=== PATIENT | female | born 1965 | race Caucasian/White ===

== ENCOUNTER 2023-12-06 18:44 | Emergency (ER) | payer SELFPAY ==
[2023-12-06 18:45] VITALS: BP 159/93; PULSE 110; RESP 20; TEMP 36.6; O2SAT 99; BMI 37.8
--- NOTE | 2023-12-06 19:07 | ECG_ITS ---
APPROVED REPORT Exam: Resting ECG HR:98 bpm ECG Measurements Heart Rate 98 AXES DE 130 P 41 QRSd 90 QRS -29 QT 359 T 6 QTc 414 Conclusion SINUS RHYTHM POSSIBLE ANTERIOR MYOCARDIAL INFARCTION , PROBABLY OLD [30 ms Q WAVE IN V3/V4, OR R < 0.2 mV IN V4] Electronically signed by : GRISELDA ATKINSON, 12/07/2023 00:53:20
--- NOTE | 2023-12-06 19:07 | CT_ITS ---
PROCEDURE INFORMATION: Exam: CT Abdomen And Pelvis With Contrast Exam date and time: 12/06/2023 10:00 PM Age: 58 years old Clinical indication: Abdominal pain; Epigastric; Additional info: Ruq/epigastric pain, h/o simba en y, h/o bernardo TECHNIQUE: Imaging protocol: Computed tomography of abdomen and pelvis with contrast. Total images: 354 Radiation optimization: All CT scans at this facility use at least one of these dose optimization techniques: automated exposure control; mA and/or kV adjustment per patient size (includes targeted exams where dose is matched to clinical indication); or iterative reconstruction. Contrast material: ISOVUE; Contrast volume: 75 ml; Contrast route: IV; COMPARISON: No relevant prior studies available. FINDINGS: Lungs: minor bibasilar atelectasis. Pleural spaces: Trace right pleural fluid. Heart: Normal heart size. Liver: Liver is upper normal in size at 18 cm. Decreased hepatic attenuation from phase of contrast versus steatosis. Normal contour. No mass. Gallbladder and bile ducts: Status post cholecystectomy. No bile duct dilatation. Pancreas: Normal. No ductal dilation. Spleen: Normal. No splenomegaly. Adrenal glands: Normal. No mass. Kidneys and ureters: No hydronephrosis, nephrolithiasis, or discrete renal mass. Right perinephric fluid and edema. Stomach and bowel: Status post gastric bypass. Residual stomach is collapsed. Unremarkable duodenum. No ileus or bowel obstruction. Focal dilatation at the jejunal anastomosis most compatible with denervation. Unremarkable terminal ileum. Mild stool in the proximal colon. The left hemicolon and rectum are completely collapsed. Appendix: Normal appendix. Intraperitoneal space: Mild free fluid throughout the right upper and right lower quadrants, encompassing the liver, gallbladder fossa, right kidney, and right paracolic gutter to the pelvis. Additional small quantity pelvic fluid. No free intraperitoneal air. Vasculature: Abdominal aorta is normal in caliber. Major abdominal vessels enhance appropriately. Lymph nodes: Unremarkable. No enlarged lymph nodes. Urinary bladder: Collapsed bladder. Reproductive: Status post hysterectomy. No pelvic mass. Bones/joints: Mild osteopenia. Mild degenerative changes thoracolumbar spine. Nonspecific lucent bone lesions L2 and L3 vertebral bodies may reflect hemangiomas. Mild thoracolumbar scoliosis. Soft tissues: Large bilobed upper abdominal wall hernia containing nonobstructed loops of small bowel and a portion of the transverse colon. IMPRESSION: 1. Mild free fluid within the right upper and right lower quadrant, surrounding the liver, right kidney, gallbladder fossa, and paracolic gutter. 2. Unknown etiology for the free fluid. If cholecystectomy was recent, consider a bile leak. 3. Status post gastric bypass. 4. Large midline abdominal wall hernia containing nonobstructed loops of small bowel and colon. 5. Additional chronic and incidental findings.
[2023-12-06] MEDS: LACTATED RINGERS 1000ML 1,000 ML 999 ML IV ×2 (19:27→20:40)
[2023-12-06] MEDS: ONDANSETRON 4MG/2ML VIAL 4 MG IV (19:28)
[2023-12-06] MEDS: MORPHINE 4MG/ML SYRINGE 4 MG IV (19:28)
[2023-12-06 19:34] LABS: Basophils # 0.1 K/mm3 (0-0.2); Basophils % 0.5 % (0.1-2.0); Eosinophils % 0.1 % (0.1-12.0); Hematocrit 33.1 % (37.0-47.0); Lymphocytes # 0.8 K/mm3 (0.7-4.5); Lymphocytes % 5.7 % (10-50); Mean Corpuscular HGB Conc 30.2 g/dL (31.8-35.4); Mean Corpuscular Hemoglobin 20.5 pg (27.0-31.2); Mean Corpuscular Volume 67.9 fl (81-99); Mean Platelet Volume 7.8 fl (7.4-10.4); Monocytes # 0.3 K/mm3 (0.1-1.0); Monocytes % 2.3 % (1.7-9.3); Neutrophils # 12.2 K/mm3 (1.8-7.8); Neutrophils % 91.5 % (37.0-80.0); Platelet Count 410 K/mm3 (142-424); Red Blood Count 4.87 M/mm3 (4.20-5.40); Red Cell Distribution Width 19.4 % (11.5-17.5); White Blood Count 13.3 K/mm3 (4.8-10.8)
[2023-12-06] MEDS: DIATRIZOATE MEG 66% & DIATRIZOATE NA 10% 30ML UDC 30 ML PO (19:35)
[2023-12-06 19:36] LABS: VBG Base Excess -6.1 mmol/L (-2.4-2.3); VBG HCO3 18.8 mmol/L (23-30); VBG Oxygen Saturation 74.2 % (50-70); VBG PCO2 31.3 mmol/L (35-51); VBG PO2 41.2 mmol/L (28-40); VBG Total CO2 19.7 mmol/L (23-27)
[2023-12-06 19:37] LABS: Lactate Venous 3.2 mmol/L (0.4-2.0)
[2023-12-06 19:39] LABS: MANUAL DIFFERENTIAL MANUAL DIFFERENTIAL (MANUAL DIFF)
[2023-12-06 19:44] LABS: Alanine Aminotransferase 34 U/L (12-78); Albumin Level 4.4 g/dl (3.5-5.0); Albumin/Globulin Ratio 1.5 (1.1-1.8); Alkaline Phosphatase 231 U/L (38-126); Aspartate Amino Transferase 35 U/L (14-36); Bilirubin,Total 0.8 mg/dl (0.2-1.3); Blood Urea Nitrogen 12 mg/dl (7-17); Calcium 9.1 mg/dl (8.4-10.2); Carbon Dioxide 22 mmol/L (22.0-30.0); Chloride 98 mmol/L (98-107); Creatinine Clearance Estimated 186 mL/min (50-200); Estimated Glomerular Filt Rate 128 ml/min (>60); GFR (African American) 154 ML/MIN (>60); Globulin 2.9 g/dL (1.3-3.2); Glucose 178 mg/dl (74-100); Lipase 359 U/L (23-300); Sodium 133 mmol/L (136-145); Total Protein,Serum 7.3 g/dl (6.3-8.2)
[2023-12-06 19:46] LABS: Activated Partial Thrombo Time 26.2 seconds (22.8-30.6); INR 1.01 (0.9-1.1); Prothrombin Time 10.9 seconds (10.1-12.5)
[2023-12-06 19:48] LABS: Ethyl Alcohol < 10 mg/dl (0-10)
--- NOTE | 2023-12-06 19:48 | PC.NURSE ---
notified freddy with rad of finished gastrograffin time.
--- NOTE | 2023-12-06 19:54 | PC.NURSE ---
clarified order for contrast with dr singh. updated nelson hayes
[2023-12-06 20:01] LABS: Troponin I < 0.01 ng/ml (0.00-0.034)
[2023-12-06 20:12] LABS: Anion Gap 16.9 mEq/L (5-15); Potassium 3.9 mmoL/L (3.5-5.1)
[2023-12-06 20:13] LABS: Lymphocytes % 6 % (10-50); Neutrophils % 94 % (42-76); Platelet Estimate Normal; Total Cells Counted 100
[2023-12-06 20:16] LABS: Microcytosis 2+
[2023-12-06 20:17] LABS: Anisocytosis 1+; Burr Cells 2+; Hypochromasia 1+
[2023-12-06 20:30] VITALS: BP 153/79; PULSE 88; O2SAT 99
[2023-12-06] MEDS: ACETAMINOPHEN 1,000MG/100ML VIAL 1000 MG IV (20:39)
[2023-12-06] MEDS: HYDROMORPHONE 2MG/ML SYRINGE 0.5 MG IV (20:44)
[2023-12-06] MEDS: KETOROLAC 30MG/ML VIAL 15 MG IV (20:45)
--- NOTE | 2023-12-06 20:47 | ED_ITS ---
Discharge Plan Disposition Patient Disposition: Home, Self-Care Condition: Good Prescriptions Prescriptions: New ciprofloxacin HCl 500 mg tablet 500 mg PO BID Qty: 20 0RF ondansetron HCl 4 mg tablet 4 mg PO Q8H PRN (Reason: nausea and vomiting) 4 Days Qty: 12 0RF metronidazole 500 mg tablet 500 mg PO BID 10 Days Qty: 20 0RF oxycodone 5 mg tablet 5 mg PO Q8H PRN (Reason: pain) Qty: 12 0RF Referrals Follow up/Referrals: Fernando Alvarez DO [Staff Physician] - See instructions Provider,MD Jarred [Primary Care Provider] - See instructions Sukhwinder Salazar MD [Staff Physician] - See instructions Sukhwinder Andrade MD [Staff Physician] - See instructions Activity Restrictions/Add. Instructions Additional Instructions/Restrictions: You were evaluated in the emergency department today. At this time, your labs are concerning for potential pancreatitis. You have fluid buildup around your liver and pancreas on CT scan. You need very close follow-up with your primary care provider as well as potentially gastroenterology. I provided you with a list of some primary care providers in the area. Please call their office to schedule an appointment and notify them that you were seen in the emergency department for an acute issue. This can be related to cirrhosis and/or pancreatitis. Alcohol use can cause pancreatitis. Eat very small, low-fat meals and gradually advance as tolerated. Make sure that you are staying hydrated. Since you have fluid in your CT scan we are prescribing you antibiotics to help clear this up. Return to the emergency department for new or worsening symptoms, such as fever, intractable pain, intractable nausea vomiting, or other concerns. Clinical Impressions Clinical Impression: Acute pancreatitis, Alcohol use, Abdominal pain, Intra-abdominal fluid Stand Alone Forms Stand Alone Forms: Work/School Release Instructions Patient Instructions: DI for Pancreatitis, DI for Acute Pain -- Adult Discharge ED Provider: Gary Srivastava General Adult HPI General Chief complaint: PAIN Stated complaint: right side pain Time Seen by Provider: 12/06/23 18:52 Mode of Arrival: Ambulatory Source of Information: Patient Limitations: No Limitations Description of Symptoms (Recalled from ER Triage Doc. by RN): Patient c/o of pain in her right side that radiates to her right shoulder. Patient states pain started this morning and has gotten worse throughout the day. Patient rates pain 10/10. Denies N/V/D. 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 She states it is mostly in her right upper quadrant and radiates to her right shoulder as well as her right pelvis. She denies experiencing anything like this in the past. It started yesterday but became significantly worse today. The pain is 10 out of 10 and she is visibly uncomfortable. No fevers, nausea, vomiting, or changes in bowel movements. She notes that she drinks approximately 3 rum and Cokes daily. She denies ever experiencing alcohol withdrawals in the past Related Data Previous Rx's Medication Instructions Recorded ciprofloxacin HCl 500 mg tablet 500 mg PO BID #20 tabs 12/06/23 metronidazole 500 mg tablet 500 mg PO BID 10 days #20 tabs 12/06/23 ondansetron HCl 4 mg tablet 4 mg PO Q8H PRN nausea and 12/06/23 vomiting 4 days #12 tabs oxycodone 5 mg tablet 5 mg PO Q8H PRN pain #12 tabs 12/06/23 Allergies Allergy/AdvReac Type Severity Reaction Status Date / Time Unable to Assess Allergy Verified 12/06/23 19:18 [facility] Disclaimer: The information contained in this section may have been updated after the patient was seen, as this information can be updated by other users. Social History (Updated 12/07/23 @ 00:33 by Ashley Silva DO) Smoking Status: Never smoker alcohol intake: current current occupational status: employed Travel in the last 8 weeks: None ROS Obtained: Yes All systems reviewed & no additional complaints except as documented Physical Exam General General appearance: alert and obese Comment: Uncomfortable appearing Head Head exam: atraumatic and normocephalic Eye Eye exam: Present normal appearance, PERRL and EOMI ENT ENT exam: Present normal exam, normal oropharynx, mucous membranes moist and normal external ear exam Neck Neck exam: Present normal inspection, full ROM and trachea midline; Absent tenderness Chest Chest inspection: Present normal inspection and symmetric chest wall rise; Absent tenderness Respiratory Respiratory exam: Present normal lung sounds bilaterally; Absent respiratory distress, wheezes, stridor or accessory muscle use Cardiovascular Cardiovascular exam: Present regular rate and normal rhythm Abdominal Exam Abdominal exam: Present soft and tenderness (Epigastric/right upper quadrant); Absent distention, guarding, rebound or rigidity Extremities Exam Extremities exam: Present normal inspection, full ROM and normal capillary refill; Absent tenderness or edema Back Exam Back exam: Present normal inspection and full ROM; Absent tenderness Neurological Exam Neurological exam: Present alert, oriented X3, CN II-XII intact and normal gait; Absent motor sensory deficit Psychiatric Psychiatric exam: Present normal affect and normal mood Skin Skin exam: Present warm and dry Medical Decision Making Medical Records Medical records reviewed: Yes I reviewed the patient's medical records. Greg Inquiry Pt receiving controlled substance: Yes Greg was queried for this patient: Yes Risks and benefits of using a controlled substance: were discussed with pt by me Vital Signs: 12/06/23 18:45 12/06/23 20:30 12/06/23 21:00 Temperature 97.8 F Temperature Source Oral Pulse Rate 88 80 Pulse Rate [Right Radial] 110 H Respiratory Rate 20 Blood Pressure 153/79 H 143/66 H Blood Pressure [Right Arm] 159/93 H Blood Pressure Mean 103 95 Blood Pressure Mean [Right Arm] 115 Blood Pressure Source [Right Arm] Automatic Cuff Blood Pressure Position [Right Arm] Sitting 02 Sat by Pulse Oximetry 99 99 98 Oxygen Delivery Method Room Air Room Air Room Air 12/06/23 22:48 Temperature Temperature Source Pulse Rate 89 Pulse Rate [Right Radial] Respiratory Rate 24 Blood Pressure 137/78 Blood Pressure [Right Arm] Blood Pressure Mean 88 Blood Pressure Mean [Right Arm] Blood Pressure Source [Right Arm] Blood Pressure Position [Right Arm] 02 Sat by Pulse Oximetry 98 Oxygen Delivery Method Room Air Lab Data Lab results reviewed: Yes I reviewed the patient's lab results. Lab Results 12/06/23 19:08: VBG pH 7.40, VBG pCO2 31.3 L, VBG pO2 41.2 H, VBG HCO3 18.8 L, V BG Total CO2 19.7 L, VBG O2 Saturation 74.2 H, VBG Base Excess -6.1 L, VBG Lactic Acid 3.2 H 12/06/23 19:24: WBC 13.3 H, RBC 4.87, Hgb 10.0 L, Hct 33.1 L, MCV 67.9 L, MCH 20.5 L, MCHC 30.2 L, RDW 19.4 H, Plt Count 410, MPV 7.8, Neut % (Auto) 91.5 H, L ymph % (Auto) 5.7 L, Union % (Auto) 2.3, Eos % (Auto) 0.1, Baso % (Auto) 0.5, N eut # (Auto) 12.2 H, Lymph # (Auto) 0.8, Union # (Auto) 0.3, Eos # (Auto) 0.0, Baso # (Auto) 0.1, Total Counted 100, Neutrophils % (Manual) 94 H, Lymphocytes % (Manual) 6 L, Platelet Estimate Normal, Hypochromasia 1+, Anisocytosis 1+, Microcytosis 2+, Maricarmen Cells 2+, PT 10.9, INR 1.01, APTT 26.2, Sodium 133 L, Potassium 3.9, Chloride 98, Carbon Dioxide 22, Anion Gap 16.9 H, BUN 12, C reatinine 0.50 L, Estimated Creat Clear 186, Estimated GFR 128, Est GFR ( Amer) 154, Glucose 178 H, Calcium 9.1, Total Bilirubin 0.8, AST 35, ALT 34, A lkaline Phosphatase 231 H, Troponin I < 0.01, Total Protein 7.3, Albumin 4.4, Globulin 2.9, Albumin/Globulin Ratio 1.5, Lipase 359 H, Plasma/Serum Alcohol < 10 12/06/23 21:25: Urine Color Yellow, Urine Appearance Clear, Urine pH 6.0, Ur Specific [place] 1.010, Urine Protein Negative, Urine Glucose (UA) Negative, Urine Ketones Negative, Urine Blood Negative, Urine Nitrate Positive, Urine Bilirubin Negative, Urine Urobilinogen 0.2, Ur Leukocyte Esterase Negative, Urine RBC None, Urine WBC Occasional, Ur Squamous Epith Cells Occasional, Urine Bacteria 2+, Urine Opiates Screen Positive H, Urine Methadone Screen Negative, Ur Barbituates Screen Negative, Ur Phencyclidine Scrn Negative, Ur Amphetamines Screen Negative, U Benzodiazepines Scrn Negative, Urine Cocaine Screen Negative, U Marijuana (THC) Screen Negative 12/06/23 22:25: Troponin I < 0.01, Vitamin B12 979 H, Folate 5.18 12/06/23 23:00: Lactate 2.5 H 12/06/23 19:24 12/06/23 19:24 Orders (Tests/Meds): ED MEDICATIONS Generic Name Dose Route Start Last Admin Trade Name Margie PRN Reason Stop Dose Admin Diazepam 10 mg 12/06/23 22:11 Diazepam 10mg/2ml Syringe IV 01/05/24 22:10 Q1HP PRN CIWA >16 Diazepam 5 mg 12/06/23 22:11 Diazepam 5mg Tablet PO 01/05/24 22:10 Q1HP PRN CIWA Score 8-15 Diazepam 5 mg 12/06/23 22:11 Diazepam 5mg Tablet PO 01/05/24 22:10 Q6HP PRN CIWA 2-7 Folic Acid 1 mg 12/07/23 09:00 Folic Acid 1mg Tablet PO 01/06/24 08:59 DAILY ANDREW Multivitamins 10 ml/ Thiamine 1,015 mls @ 150 mls/hr 12/06/23 22:15 12/06/23 23:06 HCl 100 mg/ Magnesium Sulfate IV 12/07/23 05:00 150 mls/hr 2 gm/ Lactated Ringer's .Q6H46M ANDREW Administration Multivitamins 1 each 12/07/23 17:00 Multivitamin Tablet PO 01/06/24 16:59 1700 ANDREW Sodium Chloride 10 ml 12/06/23 22:07 12/06/23 22:07 Sodium Chloride 0.9% 10ml Syr (Rad Only) IV 01/05/24 22:06 10 ml NEEDED PRN Administration Maintain IV Site Thiamine HCl 100 mg 12/07/23 09:00 Thiamine 100mg Tablet PO 12/09/23 09:01 DAILY ANDREW Discontinued Medications Generic Name Dose Route Start Last Admin Trade Name Margie PRN Reason Stop Dose Admin Acetaminophen 1,000 mg 12/06/23 20:27 12/06/23 20:39 Acetaminophen 1,000mg/100ml Vial IV 12/06/23 20:28 1,000 mg ONCE ONE Administration Diatrizoate Meglum/Diatrizoate Sod 30 ml 12/06/23 19:07 12/06/23 19:35 Diatrizoate Eri 66% & Diatrizoate Na 10% 30ml Udc PO 12/06/23 19:08 30 ml ONCE ONE Administration Folic Acid 1 mg 12/06/23 22:11 12/06/23 23:07 Folic Acid 1mg Tablet PO 12/06/23 22:12 1 mg ONCE ONE Administration Hydromorphone HCl 0.5 mg 12/06/23 20:27 12/06/23 20:44 Hydromorphone 2mg/Ml Syringe IV 12/06/23 20:28 0.5 mg ONCE ONE Administration Hydromorphone HCl 0.5 mg 12/06/23 23:01 Hydromorphone 2mg/Ml Syringe IV 12/06/23 23:02 ONCE ONE Lactated Ringer's 1,000 mls @ 999 mls/hr 12/06/23 19:07 12/06/23 19:27 Lactated Ringer's 1000 Ml Bag IV 12/06/23 20:07 999 mls/hr .Q1H1M ONE Administration Lactated Ringer's 1,000 mls @ 999 mls/hr 12/06/23 19:58 12/06/23 20:40 Lactated Ringer's 1000 Ml Bag IV 12/06/23 20:58 999 mls/hr .Q1H1M ONE Administration Iopamidol 75 ml 12/06/23 22:07 12/06/23 22:07 Iopamidol-370 (76%);100ml Bottle IV 12/06/23 22:08 75 ml ONCE ONE Administration Ketorolac Tromethamine 15 mg 12/06/23 20:27 12/06/23 20:45 Ketorolac 30mg/Ml Vial IV 12/06/23 20:28 15 mg ONCE ONE Administration Morphine Sulfate 4 mg 12/06/23 19:07 12/06/23 19:28 Morphine 4mg/Ml Syringe IV 12/06/23 19:08 4 mg ONCE ONE Administration Ondansetron HCl 4 mg 12/06/23 19:07 12/06/23 19:28 Ondansetron 4mg/2ml Vial IV 12/06/23 19:08 4 mg ONCE ONE Administration Ondansetron HCl 4 mg 12/06/23 23:10 Ondansetron 4mg Odt SL 12/06/23 23:11 ONCE ONE Oxycodone HCl 5 mg 12/06/23 23:10 12/07/23 00:14 Oxycodone 5mg Immediate Release Tablet PO 12/06/23 23:11 5 mg ONCE ONE Administration ORDERS Category Date Time Status CT abdomen pelvis w con Stat Cat Scan 12/06/23 19:07 Completed Activated Partial Thrombo Time Stat Lab 12/06/23 19:24 Completed Complete Blood Count Auto Diff Stat Lab 12/06/23 19:24 Completed Comprehensive Metabolic Panel Stat Lab 12/06/23 19:24 Completed Drug Screen,Urine Routine Lab 12/06/23 21:25 Completed Ethyl Alcohol Stat Lab 12/06/23 19:24 Completed Folate Stat Lab 12/06/23 22:25 Completed Lactic Acid Follow Up (RFLX 1) Stat Lab 12/06/23 23:00 Completed Lipase Stat Lab 12/06/23 19:24 Completed Prothrombin Time INR Stat Lab 12/06/23 19:24 Completed Troponin I Q3H Lab 12/06/23 22:25 Completed Troponin I Q3H Lab 12/07/23 01:15 Ordered Troponin I Stat Lab 12/06/23 19:24 Completed Urinalysis and Microscopic Stat Lab 12/06/23 21:25 Completed Vitamin B1 Routine Lab 12/06/23 22:25 Received Vitamin B12 Stat Lab 12/06/23 22:25 Completed Urine Culture Stat Micro 12/06/23 21:25 Received VBG [Venous Blood Gas] Stat RT 12/06/23 19:08 Completed ECG Data Tracing #1: I reviewed this ECG and interpreted as documented below: Normal sinus rhythm with a ventricular rate of [address] changes concerning for ischemia. ECG initial impression date: 12/06/23 ECG initial impression time: 19:54 Medical Decision Narrative: In summary, this patient is a 58-year-old female presenting to the Emergency Department for evaluation of right upper quadrant abdominal pain radiating to her right shoulder and right pelvis. Patient is status post cholecystectomy, Franck-en-Y, and multiple other prior abdominal surgeries. Differential diagnoses considered include but are not limited to pancreatitis, colitis, gastroenteritis, constipation, bowel obstruction, ureterolithiasis, pyelonephritis. Ruling out the most morbid conditions drove assessment. It should be noted patient's history includes obesity and daily alcohol abuse which is not at goal therapy. This complicates all aspects of care by increasing patient's risk for morbidity. On exam, the patient is uncomfortable appearing and appears to be in a lot of pain. She is hypertensive and tachycardic. She has tenderness to palpation in the right upper quadrant region. Workup included CBC, CMP, lipase, lactic acid, urinalysis, troponin, EKG, and CT abdomen and pelvis with IV contrast and oral contrast given her history of Franck-en-Y.. Labs were obtained that demonstrated leukocytosis, mildly elevated lactic acid, mild hyponatremia, mildly elevated anion gap, mild anemia with a hemoglobin of 10, mildly elevated lipase at 359, and mildly elevated alkaline phosphatase. These findings could be chronic related to her daily alcohol abuse. 2 L bolus of IV fluids were administered. She is not scoring on CIWA. Thiamine and folate were administered after banana bag. Patient was given IV morphine and Zofran initially for symptomatic improvement of pain, but still had considerable pain. Given this, she was given IV Dilaudid. EKG obtained was reassuring. Initial troponin negative. I independently interpreted CT scan prior to the radiologist read and noted fluid in the right upper quadrant. Please see radiology interpretation for final read. They noted that this could be biliary leak if her cholecystectomy were recent, but it was back in the 90s and she had had no significant issues since then. I feel that could be peripancreatic edema and fluid or related to potential cirrhosis given her daily alcohol use. I offered the patient admission versus transfer to a facility with gastroenterology for further evaluation and management of this. She states she would prefer trying to go home with pain medication to treat her presumed pancreatitis. Given the fluid on CT scan, I did prescribe her ciprofloxacin and Flagyl. She does not have a primary care provider, which makes her high risk. I gave her instructions for follow-up with PCPs as well as a list. I gave her very strict return precautions and advised that if she feels worse at all or changes his mind, we would be happy to see her here. She expressed understanding and agreement. Patient's pain was controlled with oral oxycodone and Zofran. Given this, she was deemed to be appropriate for patient directed discharge home as opposed to admission for treatment of her acute abdominal fluid and presumed pancreatitis. She does have nitrates and bacteria in her urine, but she denies any urinary symptoms or use of Azo. Urine culture was sent. Patient was discharged with instructions for very close follow-up, strict return precautions, and prescriptions for oxycodone, Zofran, ciprofloxacin, and Flagyl. Critical Care Critical Care Time Critical Care Time: No
[2023-12-06 21:00] VITALS: BP 143/66; PULSE 80; O2SAT 98
[2023-12-06 21:31] LABS: Microscopic, Urine URINE MICROSCOPIC (MICROSCOPIC)
[2023-12-06 21:37] LABS: Appearance,Urine CLEAR (Clear); Bilirubin,Urine Negative (Negative); Blood, Urine Negative (Negative); Color,Urine YELLOW (Yellow); Glucose,Urine (UA) Negative (Negative); Ketones,Urine Negative (Negative); Leukocyte Esterase,Urine Negative (Negative); Nitrate,Urine POSITIVE (Negative); Protein,Urine Negative (Negative); Urobilinogen,Urine 0.2 EU/dl (0.2)
[2023-12-06] MEDS: SODIUM CHLORIDE 0.9% 10ML SYR (RAD ONLY) 10 ML IV (22:07)
[2023-12-06] MEDS: IOPAMIDOL-370 (76%);100ML BOTTLE 75 ML IV (22:07)
[2023-12-06 22:12] LABS: Bacteria,Urine 2+ /lpf; Squamous Epithelial Cell,Urine Occasional #/hpf (0-5); WBC,Urine Occasional #/hpf (0-3)
[2023-12-06 22:37] LABS: Amphetamine/Metha Screen,Urine Negative ng/ml (<1000)
[2023-12-06 22:38] LABS: Barbiturates Screen,Urine Negative ng/ml (<200)
[2023-12-06 22:39] LABS: Benzodiazepines Screen,Urine Negative ng/ml (<200); Cannabinoid Screen,Urine Negative ng/ml (<50)
[2023-12-06 22:40] LABS: Cocaine Screen,Urine Negative ng/ml (<300); Methadone Screen,Urine Negative ng/ml (<300)
[2023-12-06 22:41] LABS: Opiate Screen,Urine Positive ng/ml (<300)
[2023-12-06 22:42] LABS: Phencyclidine Screen,Urine Negative ng/ml (<25)
[2023-12-06 22:48] VITALS: BP 137/78; PULSE 89; RESP 24; O2SAT 98
[2023-12-06 23:01] LABS: Troponin I < 0.01 ng/ml (0.00-0.034)
[2023-12-06] MEDS: MVI, ADULT NO.1 WITH VIT K 10 ML, THIAMINE HCL 100 MG, MAGNESIUM SULFATE 2 GM in LACTAT... 150 ML IV (23:06)
[2023-12-06] MEDS: FOLIC ACID 1MG TABLET 1 MG PO (23:07)
[2023-12-06 23:30] LABS: Reflex Lactic Add Lactic Reflex
[2023-12-06 23:32] LABS: Lactic Acid Follow Up (RFLX 1) 2.5 mmol/L (0.7-2.1)
[2023-12-06 23:54] LABS: Vitamin B12 979 pg/mL (239-931)
[2023-12-07] LABS: Folate 5.18 ng/mL
--- NOTE | 2023-12-07 00:13 | PC.NURSE ---
Oxycodone IR 5mg pulled by myself, given to Ayanna CHRIS for her pt
[2023-12-07] MEDS: OXYCODONE 5MG IMMEDIATE RELEASE TABLET 5 MG PO (00:14)
--- NOTE | 2023-12-07 00:20 | PC.NURSE ---
Patient requests to wait until oral pain medication takes effect to see if medication is effective for pain management. Patient currently ready for discharge, but TRN will observe patient until patient pain level is acceptable.
[2023-12-07 01:31] LABS: Reflex Lactic (2 hrs) Add Lactic Reflex
[2023-12-07 02:04] LABS: Lactic Acid Follow up (RFLX 2) 1.7 mmol/L (0.7-2.1)
[2023-12-07 02:20] VITALS: BP 123/61; PULSE 93; RESP 23; TEMP 36.8; O2SAT 97
[2023-12-07 02:21] LABS: Troponin I < 0.01 ng/ml (0.00-0.034)
[2023-12-11 12:13] LABS: Vitamin B1 139.2 nmol/L (66.5-200.0)
== END 2023-12-07 01:45 | disposition home or self-care (01) ==
PROVIDERS: Emergency Medicine; Emergency Provider Emergency Medicine
DX: E87.1 Hypo-osmolality and hyponatremia (principal); R74.02 Elevation of levels of lactic acid dehydrogenase [LDH]; B96.29 Other Escherichia coli [E. coli] as the cause of diseases classified elsewhere; R10.11 Right upper quadrant pain; K85.90 Acute pancreatitis without necrosis or infection, unspecified; R18.8 Other ascites; F10.90 Alcohol use, unspecified, uncomplicated
CPT/HCPCS: 36415; 74177; 80053; 80307; 81001; 82607; 82746; 82803; 83605; 83690; 84425; 84484; 85007; 85025; 85610; 85730; 87086; 87088; 87186; 93005; 96361; 96365; 96366; 96375; 96376; 99285; J0131; J2405; J7120; Q9967

== ENCOUNTER 2023-12-07 07:11 | Inpatient (IN) | payer SELFPAY ==
[2023-12-07] VITALS (11 sets, daily range): BP systolic 93–143; BP diastolic 64–80; PULSE 108–130; RESP 18–24; TEMP 36.8–37; O2SAT 93–97; BMI 38.4; BMI 38.9
--- NOTE | 2023-12-07 07:24 | HMH.EDGENADL ---
Discharge Plan Disposition Patient Disposition: Admitted Condition: Fair Clinical Impressions Clinical Impression: Pancreatitis Discharge ED Provider: Darius Morales Adult HPI General Chief complaint: PAIN Stated complaint: lower adb pain Time Seen by Provider: 12/07/23 07:24 Mode of Arrival: Wheelchair Source of Information: Patient Limitations: No Limitations Description of Symptoms (Recalled from ER Triage Doc. by RN): Patient was seen last night in the ED and was dx with Pancreatitis. Patient rates pain 10/10 in her right side radiating to her lower abdomen with no relief. History of Present Illness HPI narrative: Patient presents this morning after workup yesterday evening revealing pancreatitis, CT imaging concerning for pancreatitis, elevated lipase, was able to tolerate p.o. intake and, per chart review, had adequate response to oxycodone p.o. therapy and was able to tolerate p.o. intake upon discharge. She presents today with ongoing abdominal pain. The patient presents with a chief complaint of worsening abdominal pain that began yesterday. The pain is described as having started with a mild stomach ache upon waking, which progressively worsened throughout the day. By late afternoon, the pain became severe enough to disrupt her sleep, described as constant and spasmodic, particularly intense when trying to relax. The patient also reports experiencing funky urine and increased pain and pressure in the lower abdominal area as of this morning. Additionally, she mentions that she has not been able to eat since yesterday and has only managed to move her bowels yesterday morning. She has taken Tylenol at 2 AM and 6:30 AM today without significant relief from the pain. The patient has a history of having her gallbladder removed but denies any other abdominal surgeries or history of pancreatitis. She also denies any recent nausea, vomiting, or other new symptoms since her last visit. Please note that above description of symptoms, in this electronic medical record under categorization of recalled from ER triage doctor by RN are reflective of an initial nursing assessment, however, is not reflective of my full history and physical exam that was personally taken and clarified. Consequentially, this preceding description of symptoms, which may include the patient's categorized chief complaint in the EMR, do not reflect my personal clinical impression, and the ultimate description of history of present illness and patient stated complaints should be deferred to this section of the note. Unless stated otherwise or congruent with this section of the note, additional signs, symptoms, or incongruence should be interpreted as inaccurate with my clinical impression. Related Data Home Medications Medication Instructions Recorded Confirmed ondansetron HCl 4 mg tablet 4 mg PO Q8HP PRN nausea and 12/07/23 12/07/23 vomiting oxycodone 5 mg tablet 5 mg PO Q8HP PRN Moderate Pain 12/07/23 12/07/23 (Scale Score 5-6) Previous Rx's Medication Instructions Recorded ciprofloxacin HCl 500 mg tablet 500 mg PO BID #20 tabs 12/06/23 metronidazole 500 mg tablet 500 mg PO BID 10 days #20 tabs 12/06/23 Allergies Allergy/AdvReac Type Severity Reaction Status Date / Time codeine Allergy Verified 12/07/23 10:30 Sulfa (Sulfonamide Allergy Verified 12/07/23 10:30 Antibiotics) [facility] Disclaimer: The information contained in this section may have been updated after the patient was seen, as this information can be updated by other users. Medical History (Updated 12/07/23 @ 11:33 by Jah Cintron MD) Alcohol abuse Cholecystitis Acid reflux Asthma Surgical History H/O: hysterectomy Gastric bypass status for obesity Family History (Updated 12/07/23 @ 10:54 by Caro Vasquez RN) Other Age related osteoporosis Heart murmur Parkinson disease Social History (Updated 12/07/23 @ 10:56 by Caro Vasquez RN) Smoking Status: Never smoker alcohol intake: current current occupational status: employed Travel in the last 8 weeks: None ROS Obtained: Yes other As per HPI Physical Exam General General appearance: alert and in no apparent distress Head Head exam: atraumatic and normocephalic Eye Eye exam: Present normal appearance Neck Neck exam: Present normal inspection Chest Chest inspection: Present normal inspection and symmetric chest wall rise Respiratory Respiratory exam: Present normal lung sounds bilaterally; Absent respiratory distress Cardiovascular Cardiovascular exam: Present regular rate and normal rhythm Abdominal Exam Abdominal exam: Present soft and tenderness; Absent guarding, rebound or rigidity Abdominal tenderness: Present epigastrium and moderate Neurological Exam Neurological exam: Present alert and oriented X3 Psychiatric Psychiatric exam: Present normal affect and normal mood Skin Skin exam: Present warm and dry Medical Decision Making Medical Records Medical records reviewed: Yes I reviewed the patient's medical records. Greg Inquiry Pt receiving controlled substance: No Vital Signs: 12/07/23 07:12 12/07/23 07:54 12/07/23 08:00 Temperature 98.4 F Temperature Source Oral Pulse Rate 108 H 110 H Pulse Rate [Right Radial] 120 H Respiratory Rate 20 Blood Pressure 112/64 Blood Pressure [Right Arm] 117/76 Blood Pressure Mean Blood Pressure Mean [Right Arm] 89 Blood Pressure Source [Right Arm] Automatic Cuff Blood Pressure Position [Right Arm] Supine 02 Sat by Pulse Oximetry 96 95 94 L Oxygen Delivery Method Room Air 12/07/23 08:30 12/07/23 08:34 12/07/23 09:30 Temperature Temperature Source Pulse Rate 111 H 115 H Pulse Rate [Right Radial] Respiratory Rate Blood Pressure 131/73 143/71 H 118/74 Blood Pressure [Right Arm] Blood Pressure Mean 87 Blood Pressure Mean [Right Arm] Blood Pressure Source [Right Arm] Blood Pressure Position [Right Arm] 02 Sat by Pulse Oximetry 97 93 L Oxygen Delivery Method Room Air 12/07/23 10:00 Temperature Temperature Source Pulse Rate Pulse Rate [Right Radial] Respiratory Rate Blood Pressure 117/74 Blood Pressure [Right Arm] Blood Pressure Mean 82 Blood Pressure Mean [Right Arm] Blood Pressure Source [Right Arm] Blood Pressure Position [Right Arm] 02 Sat by Pulse Oximetry Oxygen Delivery Method Lab Data Lab Results 12/07/23 07:45: WBC 11.6 H, RBC 5.04, Hgb 10.2 L, Hct 34.3 L, MCV 67.9 L, MCH 20.3 L, MCHC 29.8 L, RDW 19.7 H, Plt Count 369, MPV 7.0 L, Neut % (Auto) 92.6 H, Lymph % (Auto) 4.0 L, [place] % (Auto) 2.9, Eos % (Auto) 0.2, Baso % (Auto) 0.3, Neut # (Auto) 10.8 H, Lymph # (Auto) 0.5 L, [place] # (Auto) 0.3, Eos # (Auto) 0.0, Baso # (Auto) 0.0, Total Counted 100, Neutrophils % (Manual) 93 H, Lymphocytes % (Manual) 4 L, Monocytes % (Manual) 3, Platelet Estimate Normal, RBC Morphology Not Reportable, Hypochromasia 2+, Anisocytosis 1+, Microcytosis 2+, Ovalocytes 1+, Stomatocytes 1+, Sodium 131 L, Potassium 3.7, Chloride 98, Carbon Dioxide 23, Anion Gap 13.7, BUN 11, Creatinine 0.50 L, Estimated Creat Clear 189, Estimated GFR 128, Est GFR ( Amer) 154, Glucose 191 H, Hemoglobin A1c 6.1 H, Calcium 8.1 L, Magnesium 1.9, Iron 50, TIBC 401, Iron Saturation 12.66256 L, Ferritin 6.52 L, Total Bilirubin 0.9, AST 34, ALT 27, Alkaline Phosphatase 199 H, Lactate Dehydrogenase 241 L, Total Protein 6.4, Albumin 3.8 D, Globulin 2.6, Albumin/Globulin Ratio 1.5, Lipase 356 H, TSH 6.30 H 12/07/23 07:45 12/07/23 07:45 Orders (Tests/Meds): ED MEDICATIONS Generic Name Dose Route Start Last Admin Trade Name Freq PRN Reason Stop Dose Admin Enoxaparin Sodium 40 mg 12/07/23 11:45 12/07/23 12:05 Enoxaparin 40mg/0.4ml Syringe SQ 01/06/24 11:44 40 mg DAILY ANDREW Administration Hydromorphone HCl 1 mg 12/07/23 11:26 12/07/23 16:38 Hydromorphone 2mg/Ml Syringe IV 01/06/24 11:25 1 mg Q4HP PRN Administration Moderate to Severe Pain (4-10) Lactated Ringer's 1,000 mls @ 100 mls/hr 12/07/23 10:15 12/07/23 10:59 Lactated Ringer's 1000 Ml Bag IV 01/06/24 10:14 100 mls/hr .Q10H ANDREW Administration Ceftriaxone Sodium 1 gm/ 50 mls @ 100 mls/hr 12/07/23 12:00 12/07/23 12:05 Sodium Chloride IV 12/17/23 11:59 100 mls/hr Q24H ANDREW Administration Levothyroxine Sodium 50 mcg 12/08/23 07:00 Levothyroxine 50mcg (0.05mg) Tab PO 01/07/24 06:59 DAILYDM ANDREW Pantoprazole Sodium 40 mg 12/07/23 21:00 Pantoprazole 40mg Vial IV 01/06/24 20:59 HS ANDREW Sodium Chloride 10 ml 12/07/23 10:27 Sodium Chloride 0.9% 10ml Flush Syringe IV 01/06/24 10:26 NEEDED PRN Maintain IV Site Sodium Chloride 10 ml 12/07/23 10:27 Sodium Chloride 0.9% 10ml Vial IV 01/06/24 10:26 NEEDED PRN Reconstitute Medications Discontinued Medications Generic Name Dose Route Start Last Admin Trade Name Freq PRN Reason Stop Dose Admin Belladonna Alkaloids 60 ml 12/07/23 07:35 12/07/23 07:54 Belladonna Alkaloids 60 Ml Ml PO 12/07/23 07:36 Not Given ONCE ONE Lactated Ringer's 1,000 mls @ 999 mls/hr 12/07/23 07:35 12/07/23 07:49 Lactated Ringer's 1000 Ml Bag IV 12/07/23 08:35 999 mls/hr .Q1H1M ONE Administration Iron Sucrose 200 mg/ Sodium 110 mls @ 220 mls/hr 12/07/23 13:00 12/07/23 13:43 Chloride IV 12/07/23 13:29 220 mls/hr ONCE ONE Administration Morphine Sulfate 4 mg 12/07/23 07:35 12/07/23 07:49 Morphine 4mg/Ml Syringe IV 12/07/23 07:36 4 mg ONCE ONE Administration Morphine Sulfate 4 mg 12/07/23 10:15 Morphine 4mg/Ml Syringe IV 01/06/24 10:14 Q4HP PRN Severe Pain (7-10) Ondansetron HCl 4 mg 12/07/23 07:35 12/07/23 07:49 Ondansetron 4mg/2ml Vial IV 12/07/23 07:36 4 mg ONCE ONE Administration Oxycodone HCl 5 mg 12/07/23 09:16 12/07/23 09:44 Oxycodone 5mg Immediate Release Tablet PO 12/07/23 09:17 5 mg ONCE ONE Administration ORDERS Category Date Time Status CBC w/Auto Diff [Complete Blood Count Auto Diff] Stat Lab 12/07/23 07:45 Completed CMP [Comprehensive Metabolic Panel] Stat Lab 12/07/23 07:45 Completed Lipase Stat Lab 12/07/23 07:45 Completed MAG [Magnesium] Stat Lab 12/07/23 07:45 Completed Medical Decision Narrative: Patient with history and exam per above presenting for evaluation of epigastric abdominal pain Diagnoses considered include pancreatitis, PUD, BEBETO, electrolyte abnormality, given preceding workup and imaging, highest likelihood is pancreatitis refractory to outpatient therapy ED workup and treatment included: ED MEDICATIONS Generic Name Dose Route Start Last Admin Trade Name Freq PRN Reason Stop Dose Admin Enoxaparin Sodium 40 mg 12/07/23 11:45 12/07/23 12:05 Enoxaparin 40mg/0.4ml Syringe SQ 01/06/24 11:44 40 mg DAILY ANDREW Administration Hydromorphone HCl 1 mg 12/07/23 11:26 12/07/23 16:38 Hydromorphone 2mg/Ml Syringe IV 01/06/24 11:25 1 mg Q4HP PRN Administration Moderate to Severe Pain (4-10) Lactated Ringer's 1,000 mls @ 100 mls/hr 12/07/23 10:15 12/07/23 10:59 Lactated Ringer's 1000 Ml Bag IV 01/06/24 10:14 100 mls/hr .Q10H ANDREW Administration Ceftriaxone Sodium 1 gm/ 50 mls @ 100 mls/hr 12/07/23 12:00 12/07/23 12:05 Sodium Chloride IV 12/17/23 11:59 100 mls/hr Q24H ANDREW Administration Levothyroxine Sodium 50 mcg 12/08/23 07:00 Levothyroxine 50mcg (0.05mg) Tab PO 01/07/24 06:59 DAILYDM ANDREW Pantoprazole Sodium 40 mg 12/07/23 21:00 Pantoprazole 40mg Vial IV 01/06/24 20:59 HS ANDREW Sodium Chloride 10 ml 12/07/23 10:27 Sodium Chloride 0.9% 10ml Flush Syringe IV 01/06/24 10:26 NEEDED PRN Maintain IV Site Sodium Chloride 10 ml 12/07/23 10:27 Sodium Chloride 0.9% 10ml Vial IV 01/06/24 10:26 NEEDED PRN Reconstitute Medications Discontinued Medications Generic Name Dose Route Start Last Admin Trade Name Freq PRN Reason Stop Dose Admin Belladonna Alkaloids 60 ml 12/07/23 07:35 12/07/23 07:54 Belladonna Alkaloids 60 Ml Ml PO 12/07/23 07:36 Not Given ONCE ONE Lactated Ringer's 1,000 mls @ 999 mls/hr 12/07/23 07:35 12/07/23 07:49 Lactated Ringer's 1000 Ml Bag IV 12/07/23 08:35 999 mls/hr .Q1H1M ONE Administration Iron Sucrose 200 mg/ Sodium 110 mls @ 220 mls/hr 12/07/23 13:00 12/07/23 13:43 Chloride IV 12/07/23 13:29 220 mls/hr ONCE ONE Administration Morphine Sulfate 4 mg 12/07/23 07:35 12/07/23 07:49 Morphine 4mg/Ml Syringe IV 12/07/23 07:36 4 mg ONCE ONE Administration Morphine Sulfate 4 mg 12/07/23 10:15 Morphine 4mg/Ml Syringe IV 01/06/24 10:14 Q4HP PRN Severe Pain (7-10) Ondansetron HCl 4 mg 12/07/23 07:35 12/07/23 07:49 Ondansetron 4mg/2ml Vial IV 12/07/23 07:36 4 mg ONCE ONE Administration Oxycodone HCl 5 mg 12/07/23 09:16 12/07/23 09:44 Oxycodone 5mg Immediate Release Tablet PO 12/07/23 09:17 5 mg ONCE ONE Administration ORDERS Category Date Time Status CBC w/Auto Diff [Complete Blood Count Auto Diff] Stat Lab 12/07/23 07:45 Completed CMP [Comprehensive Metabolic Panel] Stat Lab 12/07/23 07:45 Completed Lipase Stat Lab 12/07/23 07:45 Completed MAG [Magnesium] Stat Lab 12/07/23 07:45 Completed Labs were independently interpreted by me, significant for leukocytosis, elevated lipase Upon repeat evaluation patient has continued pain, inability to tolerate p.o. She will benefit from admission for further treatment given failure of outpatient management. She was accepted for admission by hospitalist. Critical Care Critical Care Time Critical Care Time: No
[2023-12-07] MEDS: LACTATED RINGERS 1000ML 1,000 ML 999 ML IV (07:49)
[2023-12-07] MEDS: MORPHINE 4MG/ML SYRINGE 4 MG IV (07:49)
[2023-12-07] MEDS: ONDANSETRON 4MG/2ML VIAL 4 MG IV (07:49)
[2023-12-07 07:53] LABS: Basophils % 0.3 % (0.1-2.0); Eosinophils % 0.2 % (0.1-12.0); Hematocrit 34.3 % (37.0-47.0); Hemoglobin 10.2 g/dL (12.2-16.2); Lymphocytes # 0.5 K/mm3 (0.7-4.5); Mean Corpuscular HGB Conc 29.8 g/dL (31.8-35.4); Mean Corpuscular Hemoglobin 20.3 pg (27.0-31.2); Mean Corpuscular Volume 67.9 fl (81-99); Monocytes # 0.3 K/mm3 (0.1-1.0); Monocytes % 2.9 % (1.7-9.3); Neutrophils # 10.8 K/mm3 (1.8-7.8); Neutrophils % 92.6 % (37.0-80.0); Platelet Count 369 K/mm3 (142-424); Red Blood Count 5.04 M/mm3 (4.20-5.40); Red Cell Distribution Width 19.7 % (11.5-17.5); White Blood Count 11.6 K/mm3 (4.8-10.8)
[2023-12-07 07:58] LABS: MANUAL DIFFERENTIAL MANUAL DIFFERENTIAL (MANUAL DIFF)
[2023-12-07 08:01] LABS: Magnesium 1.9 mg/dl (1.6-2.3)
[2023-12-07 08:02] LABS: Alanine Aminotransferase 27 U/L (12-78); Albumin Level 3.8 g/dl (3.5-5.0); Albumin/Globulin Ratio 1.5 (1.1-1.8); Alkaline Phosphatase 199 U/L (38-126); Anion Gap 13.7 mEq/L (5-15); Aspartate Amino Transferase 34 U/L (14-36); Bilirubin,Total 0.9 mg/dl (0.2-1.3); Blood Urea Nitrogen 11 mg/dl (7-17); Calcium 8.1 mg/dl (8.4-10.2); Carbon Dioxide 23 mmol/L (22.0-30.0); Chloride 98 mmol/L (98-107); Creatinine Clearance Estimated 189 mL/min (50-200); Estimated Glomerular Filt Rate 128 ml/min (>60); GFR (African American) 154 ML/MIN (>60); Globulin 2.6 g/dL (1.3-3.2); Glucose 191 mg/dl (74-100); Lipase 356 U/L (23-300); Potassium 3.7 mmoL/L (3.5-5.1); Sodium 131 mmol/L (136-145); Total Protein,Serum 6.4 g/dl (6.3-8.2)
[2023-12-07] MEDS: OXYCODONE 5MG IMMEDIATE RELEASE TABLET 5 MG PO (09:44)
--- NOTE | 2023-12-07 10:12 | PC.NURSE ---
Notified House of admission dx:Pancreatitis
--- NOTE | 2023-12-07 10:14 | PC.NURSE ---
Admission notified of admit to room 209 for pancreatitis to . OBS
--- NOTE | 2023-12-07 10:17 | EXP.HP ---
History of Present Illness *Admission Date: 12/07/23 *Reason for visit:: Abdominal pain, pancreatitis *History of present illness: Ms. Corbin is a 58-year-old female on no home medications who drinks rum daily. Initially presented to the ER yesterday due to onset of abdominal pain that radiated into her right shoulder. Pain began 24 hours prior to initial presentation. Unable to tolerate p.o. intake. Having nausea but no andi emesis. 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 Workup in the ER yesterday concerning for UTI along with pancreatitis. CT imaging showing stranding. Lipase elevated at 350. Discussion about admission versus trial of outpatient pain medication and p.o. intake undertaken yesterday in the ER. Patient elected to discharge home with oral pain medication and antibiotics for UTI. She Ari presented today to the ER due to the severity of her pain. States is a 10 out of 10. Has not been able to tolerate any p.o. fluids. Denies any fever, chills, diarrhea, chest pain or shortness of breath. Is tachycardic on arrival. Mild leukocytosis. Given her failure of attempted discharge yesterday, severity of pain, intolerance of p.o. intake, medicine consulted for admission and further management. On arrival to the floor, patient appears uncomfortable sitting in bedside chair. Heart rate tachycardic in the 120s. Stable on room air. Pleasant but in apparent pain. Denies previous episodes of pancreatitis. During interview it is wearing off alcohol ever again given the severity of pain she is dealing with at this time. [facility] Disclaimer: The information contained in this section may have been updated after the patient was seen, as this information can be updated by other users. Medical History (Updated 12/07/23 @ 11:33 by Jah Cintron MD) Alcohol abuse Cholecystitis Acid reflux Asthma Surgical History H/O: hysterectomy Gastric bypass status for obesity Family History (Updated 12/07/23 @ 10:54 by Caro Vasquez RN) Other Age related osteoporosis Heart murmur Parkinson disease Social History (Updated 12/07/23 @ 10:56 by Caro Vasquez RN) Smoking Status: Never smoker alcohol intake: current current occupational status: employed Travel in the last 8 weeks: None Review of Systems Review of Systems Review of systems (narrative): 14 point review of systems performed, pertinent positives and negatives as per [facility] Meds Home Medications and Allergies Home Medications Medication Instructions Recorded Confirmed Type ciprofloxacin HCl 500 mg tablet 500 mg PO BID #20 tabs 12/06/23 12/07/23 Rx metronidazole 500 mg tablet 500 mg PO BID 10 days #20 tabs 12/06/23 12/07/23 Rx ondansetron HCl 4 mg tablet 4 mg PO Q8HP PRN nausea and 12/07/23 12/07/23 History vomiting oxycodone 5 mg tablet 5 mg PO Q8HP PRN Moderate Pain 12/07/23 12/07/23 History (Scale Score 5-6) New Prescriptions to Start Prescriptions: Allergies Allergy/AdvReac Type Severity Reaction Status Date / Time codeine Allergy Verified 12/07/23 10:30 Sulfa (Sulfonamide Allergy Verified 12/07/23 10:30 Antibiotics) Exam Data for Last 24 hours Vital signs and Labs for Last 24 Hours: Temp Pulse Resp BP Pulse Ox O2 Del Method 98.4 F 115 H 20 143/71 H 93 L Room Air 12/07/23 07:12 12/07/23 08:34 12/07/23 07:12 12/07/23 08:34 12/07/23 08:34 12/07/23 08:34 Laboratory Results - last 24 hr 12/07/23 07:45: WBC 11.6 H, RBC 5.04, Hgb 10.2 L, Hct 34.3 L, MCV 67.9 L, MCH 20.3 L, MCHC 29.8 L, RDW 19.7 H, Plt Count 369, MPV 7.0 L, Neut % (Auto) 92.6 H, Lymph % (Auto) 4.0 L, [place] % (Auto) 2.9, Eos % (Auto) 0.2, Baso % (Auto) 0.3, Neut # (Auto) 10.8 H, Lymph # (Auto) 0.5 L, [place] # (Auto) 0.3, Eos # (Auto) 0.0, Baso # (Auto) 0.0, Sodium 131 L, Potassium 3.7, Chloride 98, Carbon Dioxide 23, Anion Gap 13.7, BUN 11, Creatinine 0.50 L, Estimated Creat Clear 189, Estimated GFR 128, Est GFR ( Amer) 154, Glucose 191 H, Calcium 8.1 L, Magnesium 1.9, Total Bilirubin 0.9, AST 34, ALT 27, Alkaline Phosphatase 199 H, Total Protein 6.4, Albumin 3.8 D, Globulin 2.6, Albumin/Globulin Ratio 1.5, Lipase 356 H I & O for Last 24 hours: Intake & Output 12/04/23 12/05/23 12/06/23 12/07/23 23:59 23:59 23:59 23:59 Weight 95.254 kg Constitutional Constitutional: mild distress, obese and cooperative *Routine HEENT Exam Head: Present normocephalic Eye: Present EOMI and PERRL ENT: Present mucous membranes moist *Routine Neck Exam Neck: Present supple; Absent lymphadenopathy *Routine Respiratory Exam Respiratory: Present CTA bilaterally; Absent rhonchi, wheezes or crackles *Routine Cardiovascular Exam Cardiovascular: Present tachycardia Comments: Regular rhythm *Routine Abdominal Exam Abdominal: Present soft, normoactive bowel sounds and tenderness (Diffuse, moderate to severe in right hemiabdomen); Absent distended, rebound or guarding *Routine Rectal Exam Rectal:: deferred *Routine Genitalia Exam Genitalia:: deferred *Routine Extremities Exam Extremities: Absent cyanosis, clubbing or edema *Routine Skin Exam Skin: Present warm; Absent rash *Routine Neurological Exam Neurological: Present alert, oriented X3 and moving all extremities; Absent altered mental status Assessment and Plan *Assessment and plan (1) Pancreatitis: Status: Acute Category: Medical Code(s): K85.90 - Acute pancreatitis without necrosis or infection, unspecified (2) Abdominal pain: Status: Acute Category: Medical Code(s): R10.9 - Unspecified abdominal pain (3) Alcohol use: Status: Acute Category: Social Hx Code(s): Z78.9 - Other specified health status (4) UTI (urinary tract infection): Status: Acute Category: Medical Code(s): N39.0 - Urinary tract infection, site not specified (5) Class 2 obesity: Status: Acute Category: Medical Code(s): E66.9 - Obesity, unspecified (6) Hypothyroidism: Status: Acute Category: Medical Code(s): E03.9 - Hypothyroidism, unspecified (7) Hyperglycemia: Status: Acute Category: Medical Code(s): R73.9 - Hyperglycemia, unspecified (8) Microcytic anemia: Status: Acute Category: Medical Code(s): D50.9 - Iron deficiency anemia, unspecified Plan 58-year-old female with obesity, history of gastric bypass surgery, daily alcohol use who presents with worsening abdominal pain for the second day in a row. Found to have pancreatitis. ER physician consulted medicine for admission. Request admission for IV fluids, pain control, further inpatient treatment of patient's pancreatitis and possible UTI. Medicine agreed to admit for further management. Necessitating IV pain control and IV fluids. N.p.o. at this time. Necessitating inpatient admission. Problems addressed as follows: Pancreatitis Alcohol use disorder -Status post Franck-en-Y in the mid . Gallbladder removed 30 years ago. Drinks 1/5 of rum every 5 days. Likely etiology of pancreatitis is alcoholic pancreatitis. -Clear liquid diet if tolerated, currently not wanting anything to eat or drink. Zofran for nausea 4 mg every 8 hours as needed -Continue LR at 125 cc an hour -[place] score of 1 due to age on admission. Will repeat labs in 48 hours to monitor for severity -CT of abdomen obtained yesterday 12/05 on first initial presentation to the ER personally reviewed, shows stranding around pancreas consistent with pancreatitis. -Lipase elevated approximately 360 -4 days since last drink, no tremors. No withdrawal symptoms. Suspected UTI -Urine abnormal with nitrates and bacteria. Obtained 12/05. Urine culture pending. -Initiate ceftriaxone 1 g daily pending urine cultures -White cell count elevated 11.6, differential includes infection from UTI versus reactive due to pancreatitis as above Given pancreatitis and obesity, will screen for hypothyroidism and diabetes. A1c 6.1, consistent with prediabetes. Will treat with sliding scale insulin during admission given hyperglycemia of 191 on presentation, fingersticks ACHS TSH elevated at 6.3. Will initiate 50 mcg daily of levothyroxine Microcytic anemia: - Iron studies obtained, iron saturation 12%, TIBC 401, ferritin low at 6.5. Iron 50. MCV 67. In light of her hemoglobin of 10 and iron deficient findings, will administer 1 dose IV Venofer 200 mg. -Recommend supplementation with iron via oral or continued IV after discharge -Transfusion threshold hemoglobin less than 7 Class II obesity complicates all aspects of her care Full code Clear liquid diet Lovenox 40 mg subcu daily
--- NOTE | 2023-12-07 10:30 | HMH.PHAINT1 ---
Pharmacy Intervention Comments: MEDICATION RECONCILIATION COMPLETED ON PATIENT USING DISCHARGE SUMMARY FROM EMERGENCY ROOM VISIT LAST NIGHT. -RENETTA STRONG, DONNAD
[2023-12-07] MEDS: LACTATED RINGERS 1000ML 1,000 ML 100 ML IV ×2 (10:59→20:50)
[2023-12-07 11:29] LABS: Hemoglobin A1C 6.1 % (4.0-6.0)
[2023-12-07 11:44] LABS: Iron 50 ug/dL (37-170)
[2023-12-07 11:46] LABS: Hypochromasia 2+; Lymphocytes % 4 % (10-50); Microcytosis 2+; Monocytes % 3 % (2-9); Neutrophils % 93 % (42-76); Platelet Estimate Normal; Total Cells Counted 100
[2023-12-07 11:47] LABS: Anisocytosis 1+; Ovalocytes 1+; Stomatocytes 1+
[2023-12-07 11:53] LABS: Total Iron Binding Capacity 401 ug/dL (265-497)
[2023-12-07] MEDS: ENOXAPARIN 40MG/0.4ML SYRINGE 40 MG SQ (12:05)
[2023-12-07] MEDS: CEFTRIAXONE SODIUM 1 GM in 0.9 % SODIUM CHLORIDE 50 ML IV (12:05)
[2023-12-07] MEDS: HYDROMORPHONE 2MG/ML SYRINGE 1 MG IV ×3 (12:06→20:50)
[2023-12-07 12:22] LABS: Ferritin 6.52 ng/ml (11.1-264)
[2023-12-07 12:40] LABS: Lactate Dehydrogenase 241 U/L (313-618)
[2023-12-07] MEDS: IRON SUCROSE COMPLEX 200 MG in 0.9 % SODIUM CHLORIDE 100 ML 220 MG IV (13:43)
--- NOTE | 2023-12-07 17:44 | PC.NURSE ---
Pt A&Ox4. Lung sounds clear bilaterally. 2+ pulses throughout. Pt c/o abdominal pain 03/23. Pt medicated for pain as needed. Pt at bedside chair with family at bedside.
[2023-12-07] MEDS: PANTOPRAZOLE 40MG VIAL 40 MG IV (20:50)
[2023-12-07] MEDS: SIMETHICONE 80MG CHEWABLE TABLET 80 MG PO (22:22)
[2023-12-08] MEDS: HYDROMORPHONE 2MG/ML SYRINGE 1 MG IV ×6 (00:47→22:29)
[2023-12-08 04:00] VITALS: BP 88/52; PULSE 125; RESP 16; TEMP 36.7; O2SAT 91; BMI 39.2
[2023-12-08] MEDS: LEVOTHYROXINE 50MCG (0.05MG) TAB 50 MCG PO (06:09)
[2023-12-08] MEDS: LACTATED RINGERS 1000ML 1,000 ML 100 ML IV (06:09)
[2023-12-08 06:56] LABS: Basophils # 0.1 K/mm3 (0-0.2); Basophils % 0.4 % (0.1-2.0); Eosinophils % 0.2 % (0.1-12.0); Mean Corpuscular HGB Conc 29.1 g/dL (31.8-35.4); Mean Corpuscular Hemoglobin 20.2 pg (27.0-31.2); Mean Corpuscular Volume 69.5 fl (81-99); Mean Platelet Volume 8.8 fl (7.4-10.4); Red Cell Distribution Width 19.7 % (11.5-17.5)
[2023-12-08 06:58] LABS: Alanine Aminotransferase 21 U/L (12-78); Albumin Level 3.2 g/dl (3.5-5.0); Albumin/Globulin Ratio 1.4 (1.1-1.8); Alkaline Phosphatase 138 U/L (38-126); Anion Gap 19.8 mEq/L (5-15); Aspartate Amino Transferase 45 U/L (14-36); Bilirubin,Total 0.9 mg/dl (0.2-1.3); Blood Urea Nitrogen 21 mg/dl (7-17); Calcium 7.8 mg/dl (8.4-10.2); Carbon Dioxide 16 mmol/L (22.0-30.0); Chloride 99 mmol/L (98-107); Creatinine Clearance Estimated 56 mL/min (50-200); Estimated Glomerular Filt Rate 31 ml/min (>60); GFR (African American) 38 ML/MIN (>60); Globulin 2.3 g/dL (1.3-3.2); Glucose 204 mg/dl (74-100); Magnesium 1.7 mg/dl (1.6-2.3); Potassium 4.8 mmoL/L (3.5-5.1); Sodium 130 mmol/L (136-145); Total Protein,Serum 5.5 g/dl (6.3-8.2)
[2023-12-08 07:00] LABS: Lymphocytes # 0.7 K/mm3 (0.7-4.5); Lymphocytes % 3.8 % (10-50); Monocytes # 0.6 K/mm3 (0.1-1.0); Monocytes % 3.1 % (1.7-9.3); Neutrophils # 17.2 K/mm3 (1.8-7.8); Neutrophils % 92.6 % (37.0-80.0); Platelet Count 471 K/mm3 (142-424); Red Blood Count 5.62 M/mm3 (4.20-5.40); White Blood Count 18.6 K/mm3 (4.8-10.8)
[2023-12-08 07:03] LABS: Hemoglobin 11.4 g/dL (12.2-16.2)
[2023-12-08 07:04] LABS: MANUAL DIFFERENTIAL MANUAL DIFFERENTIAL (MANUAL DIFF)
[2023-12-08 08:00] VITALS: BP 110/71; PULSE 126; RESP 20; TEMP 36.4; O2SAT 94
[2023-12-08 08:15] VITALS: O2SAT 94
[2023-12-08 08:27] LABS: Hypochromasia 2+; Lymphocytes % 10 % (10-50); Microcytosis 1+; Monocytes % 1 % (2-9); Neutrophils % 89 % (42-76); Total Cells Counted 100
[2023-12-08 08:28] LABS: Platelet Estimate Slight Increase
[2023-12-08] MEDS: POLYETHYLENE GLYCOL 3350 17 GM PACKET PO (09:25)
[2023-12-08] MEDS: ENOXAPARIN 40MG/0.4ML SYRINGE 40 MG SQ (09:26)
[2023-12-08] MEDS: ONDANSETRON 4MG/2ML VIAL 4 MG IV (09:27)
[2023-12-08] MEDS: LACTATED RINGERS 1000ML 1,000 ML 500 ML IV (09:34)
[2023-12-08] MEDS: CEFEPIME HCL 2 GM in 0.9 % SODIUM CHLORIDE 100 ML IV ×2 (09:35→20:22)
[2023-12-08 11:23] LABS: POC Glucose,Bedside 209 (70-110)
[2023-12-08] MEDS: humaLOG 100 UNITS/ML 10ML VIAL (SSI) SQ ×3 (12:02→20:54)
[2023-12-08] MEDS: KETOROLAC 30MG/ML VIAL 15 MG IV ×2 (12:08→20:22)
[2023-12-08] MEDS: 0.9 % SODIUM CHLORIDE 25 ML 50 ML IV (14:15)
[2023-12-08] MEDS: PROMETHAZINE HCL 25MG/ML 1ML VIAL 25 MG IV ×2 (14:15→22:37)
[2023-12-08 14:54] VITALS: PULSE 81
[2023-12-08 16:00] VITALS: BP 100/54; PULSE 128; RESP 16; TEMP 36.4; O2SAT 94
[2023-12-08 16:32] LABS: POC Glucose,Bedside 196 (70-110)
[2023-12-08 16:40] LABS: Creatine Kinase 326 U/L (30-135)
[2023-12-08] MEDS: LACTATED RINGERS 1000ML 1,000 ML 150 ML IV (17:41)
--- NOTE | 2023-12-08 18:50 | PC.NURSE ---
Patient alert & oriented x4 throughout shift. Tolerating room air well. Complaints of significant abdominal pain throughout shift, rating the pain 8/10 most of the day. Treated per SEP. Also states she gets nauseated when taking Dilaudid, zofran and phenergan administered per MAR. Tolerating fluids well. Lung sounds clear bilaterally. Abdomen firm and tender. Bowel sounds active. Call light within reach.
--- NOTE | 2023-12-08 19:44 | P.PN_ITS ---
Subjective *Date: 12/08/23 *Time: 20:06 Interval history: Need to have pain. Kidney function worsened today. White cell count increased. Urine culture returned positive today. Having flank pain on right side today. Denies chest pain or shortness of breath. Stable on room air. Slept in chair last night. No no vomiting but does have nausea with pain medication. Tolerating p.o. liquids. Remains tachycardic on exam Medical Exam Vital signs and Labs for Last 24 Hours: Vital Signs Temp Pulse Resp BP Pulse Ox O2 Del Method 12/08/23 18:48 Room Air 12/08/23 17:00 Room Air 12/08/23 16:00 97.5 F L 128 H 16 100/54 L 94 L Room Air 12/08/23 14:55 Room Air 12/08/23 14:54 81 12/08/23 13:00 Room Air 12/08/23 10:50 Room Air 12/08/23 09:10 Room Air 12/08/23 08:15 94 L Room Air 12/08/23 08:00 97.5 F L 126 H 20 110/71 94 L Room Air 12/08/23 04:00 98.1 F 125 H 16 88/52 L 91 L Room Air 12/07/23 20:00 98.2 F 130 H 18 94/71 L 93 L Room Air 12/07/23 19:48 Room Air Intake and Output 12/08/23 12/08/23 12/08/23 07:59 15:59 23:59 Intake Total 1300 / 4060 360 / 4060 2400 / 4060 Output Total 300 / 300 Balance 1300 / 3760 60 / 3760 2400 / 3760 Intake: Intake, Oral Amount 360 / 600 240 / 600 Intake, Total IV Amount 1300 / 3460 2160 / 3460 Cefepime HCl 2 gm In 0.9 % 100 / 100 Sodium Chloride 100 ml @ 200 mls/hr IV Q12H ANDREW Rx#:[id number] Lactated Ringers 1000ML 1,000 1300 / 3360 2060 / 3360 ml @ 150 mls/hr IV .[id number] ANDREW Rx#:[id number] Output: Output, Urine Amount 300 / 300 Other: Weight 96.672 kg Patient Weight 12/08/23 23:59 Weight 96.672 kg Laboratory Results - last 24 hr 12/08/23 05:51: WBC 18.6 H D, RBC 5.62 H, Hgb 11.4 L D, Hct 39.0, MCV 69.5 L, MCH 20.2 L, MCHC 29.1 L, RDW 19.7 H, Plt Count 471 H D, MPV 8.8, Neut % (Auto) 92.6 H, Lymph % (Auto) 3.8 L, [place] % (Auto) 3.1, Eos % (Auto) 0.2, Baso % (Auto) 0.4, Neut # (Auto) 17.2 H, Lymph # (Auto) 0.7, [place] # (Auto) 0.6, Eos # (Auto) 0.0, Baso # (Auto) 0.1, Total Counted 100, Neutrophils % (Manual) 89 H, Lymphocytes % (Manual) 10, Monocytes % (Manual) 1 L, Platelet Estimate Slight increase, Hypochromasia 2+, Microcytosis 1+, Sodium 130 L, Potassium 4.8 D, Chloride 99, Carbon Dioxide 16 L, Anion Gap 19.8 H, BUN 21 H D, Creatinine 1.70 H D, Estimated Creat Clear 56, Estimated GFR 31 L, Est GFR ( Amer) 38 L D , Glucose 204 H, Calcium 7.8 L, Magnesium 1.7 D, Total Bilirubin 0.9, AST 45 H D, ALT 21, Alkaline Phosphatase 138 H, Total Protein 5.5 L, Albumin 3.2 L D, Globulin 2.3, Albumin/Globulin Ratio 1.4 12/08/23 05:57: Total Creatine Kinase 326 H 12/08/23 11:14: POC Glucose 209 H 12/08/23 16:24: POC Glucose 196 H I & O for Labs for Last 24 Hours: Intake & Output 12/05/23 12/06/23 12/07/23 12/08/23 23:59 23:59 23:59 23:59 Intake Total 1540 / 1540 4060 / 4060 Output Total 0 / 0 300 / 300 Balance 1540 / 1540 3760 / 3760 Weight 96.672 kg 96.672 kg Constitutional: Present no acute distress, obese, chronically ill appearing and cooperative Head: Present atraumatic and normocephalic ENT: Present normal exam Neck: Present normal inspection Respiratory: Present normal respiratory effort; Absent rhonchi, wheezes or crackles Cardiac: Present Regular Rhythm and Tachycardia GI: Present soft, tenderness (Worse in right hemiabdomen) and normal bowel sounds; Absent distention Comments:: CVA tenderness on right Rectal (female): Present deferred Extremities: Present normal inspection and full ROM Skin: Present intact; Absent erythema Neuro: Present Grossly Intact, alert, awake, oriented x 3 and moves all extremities Assessment and Plan *Assessment and plan (1) Severe sepsis: Status: Acute Category: Medical Code(s): A41.9 - Sepsis, unspecified organism; R65.20 - Severe sepsis without septic shock (2) Pyelonephritis: Status: Acute Category: Medical Code(s): N12 - Tubulo-interstitial nephritis, not specified as acute or chronic (3) Pancreatitis: Status: Acute Category: Medical Code(s): K85.90 - Acute pancreatitis without necrosis or infection, unspecified (4) Abdominal pain: Status: Acute Category: Medical Code(s): R10.9 - Unspecified abdominal pain (5) Alcohol use: Status: Acute Category: Social Hx Code(s): Z78.9 - Other specified health status (6) UTI (urinary tract infection): Status: Acute Category: Medical Code(s): N39.0 - Urinary tract infection, site not specified (7) Class 2 obesity: Status: Acute Category: Medical Code(s): E66.9 - Obesity, unspecified (8) Hypothyroidism: Status: Acute Category: Medical Code(s): E03.9 - Hypothyroidism, unspecified (9) Hyperglycemia: Status: Acute Category: Medical Code(s): R73.9 - Hyperglycemia, unspecified (10) Microcytic anemia: Status: Acute Category: Medical Code(s): D50.9 - Iron deficiency anemia, unspecified Plan 58-year-old female with obesity, history of gastric bypass surgery, daily al cohol use who presents with worsening abdominal pain for the second day in a row. Found to have pancreatitis. ER physician consulted medicine for admission. Request admission for IV fluids, pain control, further inpatient treatment of patient's pancreatitis and possible UTI. Medicine agreed to admit for further management. Necessitating IV pain control and IV fluids. N.p.o. at this time. Necessitating inpatient admission. On further evaluation, patient symptoms not improving over first night of admission. White cell count jumped, kidney function worsened. Urine culture returned positive. Concern at this time for pyelonephritis with severe sepsis. Continues to require inpatient management. Problems addressed as follows: Severe sepsis Pyelonephritis BEBETO -Reviewed CT of abdomen again showing stranding and fluid around liver but stranding also around right kidney. In conjunction with right CVA tenderness, findings more concerning for pyelonephritis at this time and then pancreatitis. -Administered 1000 cc LR over 2 hours and increase maintenance fluid 250 cc an hour -Kidney function worsened today with BUN of 21, creatinine 1.7. -Broaden antibiotics to cefepime 2 g every 12 hours -Urine culture positive for gram-negative rods -Blood cultures obtained -Repeat BMP this evening to monitor kidney function. CBC, CMP, magnesium ordered for the morning. Pancreatitis Alcohol use disorder -Status post Franck-en-Y in the mid 90s. Gallbladder removed 30 years ago. Drinks 1/5 of rum every 5 days. Likely etiology of pancreatitis is alcoholic pancreatitis. -Lipase was elevated at 360, suspect this was a con founding finding in the setting of reevaluation of her abdomen CT and new clinical findings today as above. -Continue liquid diet. - Zofran for nausea 4 mg every 8 hours as needed; Phenergan 25 mg IV every 6 hours as needed for nausea -No signs of withdrawal. A1c 6.1, consistent with prediabetes. Will treat with sliding scale insulin during admission given hyperglycemia of 191 on presentation, fingersticks ACHS TSH elevated at 6.3. initiated 50 mcg daily of levothyroxine Microcytic anemia: - Iron studies obtained, iron saturation 12%, TIBC 401, ferritin low at 6.5. Iron 50. MCV 67. In light of her hemoglobin of 10 and iron deficient findings, will administer 1 dose IV Venofer 200 mg. -Recommend supplementation with iron via oral or continued IV after discharge -Transfusion threshold hemoglobin less than 7 Class II obesity complicates all aspects of her care Full code Clear liquid diet Lovenox 40 mg subcu daily
[2023-12-08 20:00] VITALS: BP 114/65; PULSE 120; PULSE 126; RESP 18; TEMP 36.3; O2SAT 95
[2023-12-08 20:07] LABS: POC Glucose,Bedside 178 (70-110)
[2023-12-08] MEDS: PANTOPRAZOLE 40MG VIAL 40 MG IV (20:22)
[2023-12-09] VITALS: BP 158/84; PULSE 120; RESP 18; TEMP 36.9; O2SAT 97
[2023-12-09] MEDS: HYDROMORPHONE 2MG/ML SYRINGE 1 MG IV ×5 (02:30→22:03)
[2023-12-09] MEDS: LACTATED RINGERS 1000ML 1,000 ML 150 ML IV (02:30)
[2023-12-09 04:00] VITALS: BP 155/80; PULSE 110; PULSE 122; RESP 18; TEMP 36.9; O2SAT 96; BMI 39.2
[2023-12-09 05:47] LABS: POC Glucose,Bedside 143 (70-110)
[2023-12-09 06:33] LABS: Basophils # 0.1 K/mm3 (0-0.2); Basophils % 0.4 % (0.1-2.0); Eosinophils % 0.2 % (0.1-12.0); Hematocrit 35.3 % (37.0-47.0); Hemoglobin 10.3 g/dL (12.2-16.2); Lymphocytes # 0.6 K/mm3 (0.7-4.5); Mean Corpuscular HGB Conc 29.2 g/dL (31.8-35.4); Mean Corpuscular Hemoglobin 20.3 pg (27.0-31.2); Mean Corpuscular Volume 69.6 fl (81-99); Mean Platelet Volume 8.2 fl (7.4-10.4); Monocytes # 0.3 K/mm3 (0.1-1.0); Neutrophils # 12.8 K/mm3 (1.8-7.8); Neutrophils % 93.4 % (37.0-80.0); Platelet Count 372 K/mm3 (142-424); Red Blood Count 5.07 M/mm3 (4.20-5.40); Red Cell Distribution Width 19.8 % (11.5-17.5); White Blood Count 13.7 K/mm3 (4.8-10.8)
[2023-12-09 06:38] LABS: MANUAL DIFFERENTIAL MANUAL DIFFERENTIAL (MANUAL DIFF)
[2023-12-09 06:41] LABS: Alanine Aminotransferase 20 U/L (12-78); Albumin Level 3.2 g/dl (3.5-5.0); Alkaline Phosphatase 126 U/L (38-126); Anion Gap 20.4 mEq/L (5-15); Aspartate Amino Transferase 44 U/L (14-36); Bilirubin,Total 0.9 mg/dl (0.2-1.3); Blood Urea Nitrogen 34 mg/dl (7-17); Calcium 7.9 mg/dl (8.4-10.2); Carbon Dioxide 15 mmol/L (22.0-30.0); Chloride 97 mmol/L (98-107); Creatinine Clearance Estimated 53 mL/min (50-200); Estimated Glomerular Filt Rate 29 ml/min (>60); GFR (African American) 35 ML/MIN (>60); Globulin 3.1 g/dL (1.3-3.2); Glucose 132 mg/dl (74-100); Magnesium 1.9 mg/dl (1.6-2.3); Potassium 4.4 mmoL/L (3.5-5.1); Sodium 128 mmol/L (136-145); Total Protein,Serum 6.3 g/dl (6.3-8.2)
[2023-12-09] MEDS: PROMETHAZINE HCL 25MG/ML 1ML VIAL 25 MG IV ×2 (06:42→20:05)
[2023-12-09] MEDS: LEVOTHYROXINE 50MCG (0.05MG) TAB 50 MCG PO (06:42)
[2023-12-09 07:51] LABS: Hypochromasia 2+; Lymphocytes % 10 % (10-50); Monocytes % 2 % (2-9); Neutrophils % 88 % (42-76); Total Cells Counted 100
[2023-12-09 07:52] LABS: Platelet Estimate Normal
[2023-12-09 08:00] VITALS: BP 165/99; PULSE 110; PULSE 124; RESP 18; TEMP 36.7; O2SAT 99
--- NOTE | 2023-12-09 08:00 | US_ITS ---
FINAL REPORT CLINICAL HISTORY: eval liver for fluid, cirrhosis COMPARISON: None FINDINGS: Sonographic images of the right upper quadrant were obtained. The pancreas is partially obscured. There is coarsening of the echotexture of the liver, likely cirrhosis. A small amount of free fluid is present in the right upper quadrant of the abdomen. The gallbladder has been surgically resected. There is no evidence of biliary ductal dilatation.The common duct measures 6 mm. Limited images of the right kidney are unremarkable. IMPRESSION: Coarsening of the echotexture of the liver, consistent with cirrhosis. Gallbladder has been surgically resected. Small amount of ascites. Reviewed, Interpreted and Dictated by Venkatesh Storey MD Transcribed by Vero Wiklinson Authenticated and [facility]
[2023-12-09] MEDS: LACTATED RINGERS 1000ML 1,000 ML 500 ML IV (09:04)
[2023-12-09] MEDS: KETOROLAC 30MG/ML VIAL 15 MG IV ×3 (09:05→20:04)
[2023-12-09] MEDS: ENOXAPARIN 40MG/0.4ML SYRINGE 40 MG SQ (09:12)
[2023-12-09] MEDS: POLYETHYLENE GLYCOL 3350 17 GM PACKET PO (09:13)
[2023-12-09] MEDS: CEFEPIME HCL 2 GM in 0.9 % SODIUM CHLORIDE 100 ML IV ×2 (10:19→20:04)
--- NOTE | 2023-12-09 11:40 | P.PN_ITS ---
Subjective *Date: 12/09/23 *Time: 11:40 Interval history: patient is seen at bedside, complains of nause and abck pain, denied CP, SOB, fevers, she was able to hold down dinner last night Exam Data for Last 24 hours Vital signs and Labs for Last 24 Hours: Temp Pulse Resp BP Pulse Ox O2 Del Method 98.0 F 124 H 18 165/99 H 99 Room Air 12/09/23 08:00 12/09/23 08:00 12/09/23 08:00 12/09/23 08:00 12/09/23 08:00 12/09/23 11:00 Laboratory Results - last 24 hr 12/08/23 05:57: Total Creatine Kinase 326 H 12/08/23 16:24: POC Glucose 196 H 12/08/23 19:59: POC Glucose 178 H 12/09/23 05:39: POC Glucose 143 H 12/09/23 05:40: WBC 13.7 H D, RBC 5.07, Hgb 10.3 L, Hct 35.3 L, MCV 69.6 L, MCH 20.3 L, MCHC 29.2 L, RDW 19.8 H, Plt Count 372, MPV 8.2, Neut % (Auto) 93.4 H, Lymph % (Auto) 4.0 L, [place] % (Auto) 2.0, Eos % (Auto) 0.2, Baso % (Auto) 0.4, Neut # (Auto) 12.8 H, Lymph # (Auto) 0.6 L, [place] # (Auto) 0.3, Eos # (Auto) 0.0, Baso # (Auto) 0.1, Total Counted 100, Neutrophils % (Manual) 88 H, Lymphocytes % (Manual) 10, Monocytes % (Manual) 2, Platelet Estimate Normal, Hypochromasia 2+, Sodium 128 L, Potassium 4.4, Chloride 97 L, Carbon Dioxide 15 L, Anion Gap 20.4 H, BUN 34 H D, Creatinine 1.80 H, Estimated Creat Clear 53, Estimated GFR 29 L, Est GFR ( Amer) 35 L, Glucose 132 H D, Calcium 7.9 L, Magnesium 1.9 D, Total Bilirubin 0.9, AST 44 H, ALT 20, Alkaline Phosphatase 126, Total Protein 6.3, Albumin 3.2 L, Globulin 3.1, Albumin/Globulin Ratio 1.0 L I & O for Last 24 hours: Intake & Output 12/06/23 12/07/23 12/08/23 12/09/23 23:59 23:59 23:59 23:59 Intake Total 1540 / 1540 4060 / 4060 988 / 988 Output Total 0 / 0 300 / 600 300 / 300 Balance 1540 / 1540 3760 / 3460 688 / 688 Weight 96.672 kg 96.672 kg 96.685 kg Microbiology Reports for the Last 24 Hours: Microbiology 12/08/23 09:10 Blood Blood Culture - Preliminary NO GROWTH AFTER 24 HOURS 12/08/23 09:20 Blood Blood Culture - Preliminary NO GROWTH AFTER 24 HOURS Constitutional Constitutional: no acute distress *Routine HEENT Exam Head: Present normocephalic Eye: Present EOMI and PERRL ENT: Present mucous membranes moist *Routine Neck Exam Neck: Present supple; Absent lymphadenopathy *Routine Respiratory Exam Respiratory: Present CTA bilaterally *Routine Cardiovascular Exam Cardiovascular: Present RRR *Routine Abdominal Exam Abdominal: Present soft and normoactive bowel sounds; Absent tenderness *Routine Extremities Exam Extremities: Absent cyanosis, clubbing or edema *Routine Skin Exam Skin: Present warm; Absent rash *Routine Neurological Exam Neurological: Present alert and oriented X3 Assessment and Plan *Assessment and plan (1) Severe sepsis: Status: Acute Category: Medical Code(s): A41.9 - Sepsis, unspecified organism; R65.20 - Severe sepsis without septic shock (2) Pyelonephritis: Status: Acute Category: Medical Code(s): N12 - Tubulo-interstitial nephritis, not specified as acute or chronic (3) Pancreatitis: Status: Acute Category: Medical Code(s): K85.90 - Acute pancreatitis without necrosis or infection, unspecified (4) Abdominal pain: Status: Acute Category: Medical Code(s): R10.9 - Unspecified abdominal pain (5) Alcohol use: Status: Acute Category: Social Hx Code(s): Z78.9 - Other specified health status (6) UTI (urinary tract infection): Status: Acute Category: Medical Code(s): N39.0 - Urinary tract infection, site not specified (7) Class 2 obesity: Status: Acute Category: Medical Code(s): E66.9 - Obesity, unspecified (8) Hypothyroidism: Status: Acute Category: Medical Code(s): E03.9 - Hypothyroidism, unspecified (9) Hyperglycemia: Status: Acute Category: Medical Code(s): R73.9 - Hyperglycemia, unspecified (10) Microcytic anemia: Status: Acute Category: Medical Code(s): D50.9 - Iron deficiency anemia, unspecified Plan 58-year-old female with obesity, history of gastric bypass surgery, daily alcohol use who presents with worsening abdominal pain for the second day in a row. Found to have pancreatitis. ER physician consulted medicine for admission. Request admission for IV fluids, pain control, further inpatient treatment of patient's pancreatitis and possible UTI. Medicine agreed to admit for further management. Necessitating IV pain control and IV fluids. N.p.o. at this time. Necessitating inpatient admission. Severe sepsis Pyelonephritis BEBETO Pancreatitis Alcohol use disorder -Reviewed CT of abdomen again showing stranding and fluid around liver but stranding also around right kidney. In conjunction with right CVA tenderness, findings more concerning for pyelonephritis at this time than pancreatitis. continue IV fluids advance diet as tolerated, currently on full liquid diet monitor BMP, monitor Na level Cr is worsening - monitor -Status post Franck-en-Y in the mid 90s. Gallbladder removed 30 years ago. Drinks 1/5 of rum every 5 days. Likely etiology of pancreatitis is alcoholic pancreatitis. -Lipase was elevated at 360, suspect this was a con founding finding in the setting of reevaluation of her abdomen CT and new clinical findings today as above. -Continue liquid diet. - Zofran for nausea 4 mg every 8 hours as needed; Phenergan 25 mg IV every 6 hours as needed for nausea -No signs of withdrawal. A1c 6.1, consistent with prediabetes. Will treat with sliding scale insulin, fingersticks ACHS TSH elevated at 6.3. initiated 50 mcg daily of levothyroxine Microcytic anemia: - Iron studies obtained, iron saturation 12%, TIBC 401, ferritin low at 6.5. Iron 50. MCV 67. In light of her hemoglobin of 10 and iron deficient findings, will administer 1 dose IV Venofer 200 mg. -Recommend supplementation with iron via oral or continued IV after discharge -Transfusion threshold hemoglobin less than 7 Class II obesity complicates all aspects of her care Full code Full liquid diet Lovenox 40 mg subcu daily
[2023-12-09 11:57] LABS: POC Glucose,Bedside 131 (70-110)
[2023-12-09 12:00] VITALS: PULSE 110
[2023-12-09 12:08] VITALS: BMI 39.2
[2023-12-09 16:00] VITALS: BP 129/82; PULSE 110; PULSE 127; RESP 18; TEMP 36.3; O2SAT 95
[2023-12-09] MEDS: LACTATED RINGERS 1000ML 1,000 ML 75 ML IV (16:56)
[2023-12-09 17:12] LABS: POC Glucose,Bedside 145 (70-110)
[2023-12-09 20:00] VITALS: BP 104/69; PULSE 118; PULSE 130; RESP 20; TEMP 36.4; O2SAT 100
[2023-12-09] MEDS: PANTOPRAZOLE 40MG VIAL 40 MG IV (20:05)
[2023-12-09] MEDS: SODIUM CHLORIDE 0.9% 25ML BAG 25 ML IV (20:05)
[2023-12-09] MEDS: SODIUM CHLORIDE 0.9% 10ML VIAL 10 ML IV (20:05)
[2023-12-09 21:30] LABS: POC Glucose,Bedside 123 (70-110)
[2023-12-10] VITALS (8 sets, daily range): BP systolic 116–161; BP diastolic 72–96; PULSE 100–120; RESP 16–19; TEMP 36.6–36.9; O2SAT 91–99; BMI 39.2
[2023-12-10] MEDS: HYDROMORPHONE 2MG/ML SYRINGE 1 MG IV (02:15)
[2023-12-10 05:28] LABS: POC Glucose,Bedside 114 (70-110)
--- NOTE | 2023-12-10 06:02 | PC.NURSE ---
Pt is alert and oriented x4 and currently tolerating RA well. Pt has c/o severe abdominal pain this shift and has requested pain medication Q4H throughout shift, Pt was treated per SEP. Pt has also c/o nausea and was treated per SEP. Pt has slept well in between doses of pain medication and continues to sleep sitting up in recliner. Pt denies other needs at this time.
[2023-12-10] MEDS: LEVOTHYROXINE 50MCG (0.05MG) TAB 50 MCG PO (06:23)
[2023-12-10] MEDS: KETOROLAC 30MG/ML VIAL 15 MG IV (06:46)
[2023-12-10] MEDS: LACTATED RINGERS 1000ML 1,000 ML 75 ML IV (06:49)
[2023-12-10] MEDS: ENOXAPARIN 40MG/0.4ML SYRINGE 40 MG SQ (09:23)
[2023-12-10] MEDS: POLYETHYLENE GLYCOL 3350 17 GM PACKET PO (09:23)
[2023-12-10] MEDS: CEFEPIME HCL 2 GM in 0.9 % SODIUM CHLORIDE 100 ML IV ×2 (09:24→20:20)
[2023-12-10 10:59] LABS: Alanine Aminotransferase 17 U/L (12-78); Alkaline Phosphatase 136 U/L (38-126); Anion Gap 22.4 mEq/L (5-15); Aspartate Amino Transferase 54 U/L (14-36); Bilirubin,Total 0.8 mg/dl (0.2-1.3); Blood Urea Nitrogen 44 mg/dl (7-17); Calcium 8.1 mg/dl (8.4-10.2); Carbon Dioxide 14 mmol/L (22.0-30.0); Chloride 98 mmol/L (98-107); Creatinine Clearance Estimated 60 mL/min (50-200); Estimated Glomerular Filt Rate 33 ml/min (>60); GFR (African American) 40 ML/MIN (>60); Glucose 82 mg/dl (74-100); Potassium 4.4 mmoL/L (3.5-5.1); Sodium 130 mmol/L (136-145)
[2023-12-10 11:39] LABS: POC Glucose,Bedside 103 (70-110)
[2023-12-10] MEDS: TRAMADOL 50MG TABLET 25 MG PO ×2 (14:14→20:18)
--- NOTE | 2023-12-10 16:16 | P.PN_ITS ---
Subjective *Date: 12/10/23 *Time: 16:16 Interval history: patient is seen at bedside, complains of nause and abck pain, denied CP, SOB, fevers, she was able to hold down dinner last night Exam Data for Last 24 hours Vital signs and Labs for Last 24 Hours: Temp Pulse Resp BP Pulse Ox O2 Del Method 98.1 F 110 H 18 131/96 H 99 Room Air 12/10/23 11:11 12/10/23 12:00 12/10/23 11:11 12/10/23 11:11 12/10/23 11:11 12/10/23 14:49 Laboratory Results - last 24 hr 12/09/23 16:54: POC Glucose 145 H 12/09/23 20:27: POC Glucose 123 H 12/10/23 05:12: POC Glucose 114 H 12/10/23 05:46: Sodium 130 L, Potassium 4.4, Chloride 98, Carbon Dioxide 14 L, Anion Gap 22.4 H, BUN 44 H D, Creatinine 1.60 H, Estimated Creat Clear 60, Estimated GFR 33 L, Est GFR ( Amer) 40 L, Glucose 82, Calcium 8.1 L, To john Bilirubin 0.8, AST 54 H, ALT 17, Alkaline Phosphatase 136 H, Total Protein 6.0 L, Albumin 3.0 L, Globulin 3.0, Albumin/Globulin Ratio 1.0 L 12/10/23 11:31: POC Glucose 103 I & O for Last 24 hours: Intake & Output 12/07/23 12/08/23 12/09/23 12/10/23 23:59 23:59 23:59 23:59 Intake Total 1540 / 1540 4060 / 4060 2763 / 3128 1140 / 1140 Output Total 0 / 0 300 / 600 550 / 550 450 / 450 Balance 1540 / 1540 3760 / 3460 2213 / 2578 690 / 690 Weight 96.672 kg 96.672 kg 96.68 kg 96.68 kg Microbiology Reports for the Last 24 Hours: Microbiology 12/08/23 09:20 Blood Blood Culture - Preliminary NO GROWTH AFTER 48 HOURS 12/08/23 09:10 Blood Blood Culture - Preliminary NO GROWTH AFTER 48 HOURS Constitutional Constitutional: no acute distress *Routine HEENT Exam Head: Present normocephalic Eye: Present EOMI and PERRL ENT: Present mucous membranes moist *Routine Neck Exam Neck: Present supple; Absent lymphadenopathy *Routine Respiratory Exam Respiratory: Present CTA bilaterally *Routine Cardiovascular Exam Cardiovascular: Present RRR *Routine Abdominal Exam Abdominal: Present soft and normoactive bowel sounds; Absent tenderness *Routine Extremities Exam Extremities: Absent cyanosis, clubbing or edema *Routine Skin Exam Skin: Present warm; Absent rash *Routine Neurological Exam Neurological: Present alert and oriented X3 Assessment and Plan *Assessment and plan (1) Severe sepsis: Status: Acute Category: Medical Code(s): A41.9 - Sepsis, unspecified organism; R65.20 - Severe sepsis without septic shock (2) Pyelonephritis: Status: Acute Category: Medical Code(s): N12 - Tubulo-interstitial nephritis, not specified as acute or chronic (3) Pancreatitis: Status: Acute Category: Medical Code(s): K85.90 - Acute pancreatitis without necrosis or infection, unspecified (4) Abdominal pain: Status: Acute Category: Medical Code(s): R10.9 - Unspecified abdominal pain (5) Alcohol use: Status: Acute Category: Social Hx Code(s): Z78.9 - Other specified health status (6) UTI (urinary tract infection): Status: Acute Category: Medical Code(s): N39.0 - Urinary tract infection, site not specified (7) Class 2 obesity: Status: Acute Category: Medical Code(s): E66.9 - Obesity, unspecified (8) Hypothyroidism: Status: Acute Category: Medical Code(s): E03.9 - Hypothyroidism, unspecified (9) Hyperglycemia: Status: Acute Category: Medical Code(s): R73.9 - Hyperglycemia, unspecified (10) Microcytic anemia: Status: Acute Category: Medical Code(s): D50.9 - Iron deficiency anemia, unspecified Plan 58-year-old female with obesity, history of gastric bypass surgery, daily alcohol use who presents with worsening abdominal pain for the second day in a row. Found to have pancreatitis. ER physician consulted medicine for admission. Request admission for IV fluids, pain control, further inpatient treatment of patient's pancreatitis and possible UTI. Medicine agreed to admit for further management. Necessitating IV pain control and IV fluids. N.p.o. at this time. Necessitating inpatient admission. Severe sepsis Pyelonephritis BEBETO Pancreatitis Alcohol use disorder -Reviewed CT of abdomen again showing stranding and fluid around liver but stranding also around right kidney. In conjunction with right CVA tenderness, findings more concerning for pyelonephritis at this time than pancreatitis. continue IV fluids advance diet as tolerated, currently on full liquid diet monitor BMP, monitor Na level Cr is worsening - monitor advance to regular diet BEBETO stop IV toradol given BEBETO, will give IV fluid bolus, monitor Cr, -Status post Franck-en-Y in the mid 90s. Gallbladder removed 30 years ago. Drinks 1/5 of rum every 5 days. Likely etiology of pancreatitis is alcoholic pancreatitis. -Lipase was elevated at 360, suspect this was a con founding finding in the setting of reevaluation of her abdomen CT and new clinical findings today as above. -Continue liquid diet. - Zofran for nausea 4 mg every 8 hours as needed; Phenergan 25 mg IV every 6 hours as needed for nausea -No signs of withdrawal. A1c 6.1, consistent with prediabetes. Will treat with sliding scale insulin, fingersticks ACHS TSH elevated at 6.3. initiated 50 mcg daily of levothyroxine Microcytic anemia: - Iron studies obtained, iron saturation 12%, TIBC 401, ferritin low at 6.5. Iron 50. MCV 67. In light of her hemoglobin of 10 and iron deficient findings, will administer 1 dose IV Venofer 200 mg. -Recommend supplementation with iron via oral or continued IV after discharge -Transfusion threshold hemoglobin less than 7 Class II obesity complicates all aspects of her care Full code Lovenox 40 mg subcu daily advance to regular diet, stop IV toradol given BEBETO, will give IV fluid bolus, monitor Cr, DC 1-2 days pending clinical improvement
[2023-12-10] MEDS: 0.9 % SODIUM CHLORIDE 1000ML 500 ML 999 ML IV (16:32)
--- NOTE | 2023-12-10 16:35 | PC.NURSE ---
PT IS SITTING UP IN THE CHAIR. ALERT AND ORIENTED X4. PT HAS TOLERATED REGULAR DIET. NO NAUSEA/VOMITING. MEDICATED PER MAR FOR RIGHT SIDED ABDOMINAL DISCOMFORT. MINIMAL UOP THIS SHIFT. PT HAS AMBULATED TO THE BATHROOM WITH 1 ASSIST AND WALKER. PT STATES SHE HAS NOT HAD A BOWEL MOVEMENT IN 4 DAYS. REQUESTED FOR MIRALAX TO BE MIXED WITH HER COFFEE THIS MORNING. LUNG SOUNDS CLEAR. ABDOMEN SOFT/TENDERNESS NOTED RUQ. SWELLING NOTED TO THE BLE. WILL CONTINUE TO MONITOR.
[2023-12-10 16:45] LABS: POC Glucose,Bedside 110 (70-110)
[2023-12-10] MEDS: SIMETHICONE 80MG CHEWABLE TABLET 80 MG PO (20:20)
[2023-12-10] MEDS: PANTOPRAZOLE 40MG VIAL 40 MG IV (20:20)
[2023-12-10 20:22] LABS: POC Glucose,Bedside 91 (70-110)
[2023-12-11] VITALS (7 sets, daily range): BP systolic 129–153; BP diastolic 74–89; PULSE 100–140; RESP 17–18; TEMP 36.5–37.4; O2SAT 91–97; BMI 42.3
[2023-12-11] MEDS: 0.9 % SODIUM CHLORIDE 1000ML 1,000 ML 75 ML IV ×2 (00:12→14:10)
--- NOTE | 2023-12-11 05:20 | PC.NURSE ---
PATIENT SAYS TRAMADOL HELPFUL FOR CONTROL OF ABD PAIN . VITAL SIGNS STABLE. AFEBRILE. . NO NAUSEA OR VOMITING. LUNG SOUNDS DIMINISHED. HEART RATE TACHYCARDIC. HAS 3+ EDEMA IN BLEs.
[2023-12-11 05:49] LABS: POC Glucose,Bedside 105 (70-110)
[2023-12-11] MEDS: LEVOTHYROXINE 50MCG (0.05MG) TAB 50 MCG PO (06:03)
[2023-12-11 06:22] LABS: Alanine Aminotransferase 16 U/L (12-78); Alkaline Phosphatase 147 U/L (38-126); Aspartate Amino Transferase 36 U/L (14-36); Calcium 8.2 mg/dl (8.4-10.2); Chloride 100 mmol/L (98-107); Globulin 2.9 g/dL (1.3-3.2); Glucose 107 mg/dl (74-100); Sodium 131 mmol/L (136-145); Total Protein,Serum 5.9 g/dl (6.3-8.2)
[2023-12-11 06:23] LABS: Carbon Dioxide 18 mmol/L (22.0-30.0); Creatinine Clearance Estimated 36 mL/min (50-200); Estimated Glomerular Filt Rate 42 ml/min (>60); GFR (African American) 51 ML/MIN (>60)
[2023-12-11 06:33] LABS: Blood Urea Nitrogen 41 mg/dl (7-17)
--- NOTE | 2023-12-11 07:57 | P.PN_ITS ---
Subjective *Date: 12/11/23 *Time: 07:57 Medical Exam Vital signs and Labs for Last 24 Hours: Vital Signs Temp Pulse Pulse Resp BP Pulse Ox O2 Del Method 12/11/23 06:57 Room Air 12/11/23 05:00 Room Air 12/11/23 04:00 113 H 12/11/23 04:00 98.3 F 109 H 18 130/79 95 Room Air 12/11/23 03:00 Room Air 12/11/23 00:57 Room Air 12/11/23 00:00 98.1 F 107 H 18 136/89 95 Room Air 12/11/23 00:00 103 H 12/10/23 23:00 Room Air 12/10/23 21:00 Room Air 12/10/23 20:00 94 L Room Air 12/10/23 20:00 110 H 12/10/23 19:55 98.5 F 104 H 18 149/76 H 94 L Room Air 12/10/23 18:58 Room Air 12/10/23 17:00 Room Air 12/10/23 16:00 100 H 12/10/23 16:00 97.8 F 116 H 19 129/74 91 L Room Air 12/10/23 14:49 Room Air 12/10/23 13:00 Room Air 12/10/23 12:00 110 H 12/10/23 11:11 98.1 F 106 H 18 131/96 H 99 Room Air 12/10/23 10:50 Room Air 12/10/23 08:00 Room Air 12/10/23 08:00 110 H 12/10/23 08:00 97.8 F 112 H 18 161/72 H 93 L Room Air 12/10/23 08:00 Room Air Intake and Output 12/10/23 12/10/23 12/11/23 15:59 23:59 07:59 Intake Total 775 / 2421 679 / 2421 842 / 842 Output Total 250 / 451 1 / 451 400 / 400 Balance 525 / 1970 678 / 1970 442 / 442 Intake: Intake, Oral Amount 775 / 1115 100 / 1115 240 / 240 Intake, Total IV Amount 579 / 1281 602 / 602 0.9 % Sodium Chloride 1000ML 1, 79 / 581 502 / 502 000 ml @ 75 mls/hr IV .[id number] ANDREW Rx#:[id number] 0.9 % Sodium Chloride 1000ML 500 / 500 500 ml @ 999 mls/hr IV .Q31M ONE Rx#:[id number] Cefepime HCl 2 gm In 0.9 % 100 / 100 Sodium Chloride 100 ml @ 200 mls/hr IV Q12H [facility] Rx#:[id number] Output: Output, Urine Amount 250 / 451 1 / 451 400 / 400 Other: Number of Voids 0 Number of Unmeasured Voids 1 1 Weight 104.326 kg Patient Weight 12/11/23 23:59 Weight 104.326 kg Laboratory Results - last 24 hr 12/10/23 05:46: Sodium 130 L, Potassium 4.4, Chloride 98, Carbon Dioxide 14 L, Anion Gap 22.4 H, BUN 44 H D, Creatinine 1.60 H, Estimated Creat Clear 60, Estimated GFR 33 L, Est GFR ( Amer) 40 L, Glucose 82, Calcium 8.1 L, Total Bilirubin 0.8, AST 54 H, ALT 17, Alkaline Phosphatase 136 H, Total Protein 6.0 L, Albumin 3.0 L, Globulin 3.0, Albumin/Globulin Ratio 1.0 L 12/10/23 11:31: POC Glucose 103 12/10/23 16:38: POC Glucose 110 12/10/23 20:10: POC Glucose 91 12/11/23 05:36: Sodium 131 L, Potassium 4.0, Chloride 100, Carbon Dioxide 18 L, Anion Gap 17.0 H, BUN 41 H, Creatinine 1.30 H, Estimated Creat Clear 36, Estimated GFR 42 L, Est GFR ( Amer) 51 L D, Glucose 107 H D, Calcium 8.2 L, Total Bilirubin 1.0, AST 36 D, ALT 16, Alkaline Phosphatase 147 H, Total Protein 5.9 L, Albumin 3.0 L, Globulin 2.9, Albumin/Globulin Ratio 1.0 L 12/11/23 05:42: POC Glucose 105 I & O for Labs for Last 24 Hours: Intake & Output 12/08/23 12/09/23 12/10/23 12/11/23 23:59 23:59 23:59 23:59 Intake Total 4060 / 4060 2763 / 3128 1819 / 2421 842 / 842 Output Total 300 / 600 550 / 550 451 / 451 400 / 400 Balance 3760 / 3460 2213 / 2578 1368 / 1970 442 / 442 Weight 96.672 kg 96.68 kg 96.68 kg 104.326 kg Microbiology Reports for the Last 24 Hours: Microbiology 12/08/23 09:20 Blood Blood Culture - Preliminary NO GROWTH AFTER 48 HOURS 12/08/23 09:10 Blood Blood Culture - Preliminary NO GROWTH AFTER 48 HOURS The patient's infection will respond to the chosen ABx?: Yes Is the patient receiving the right drug, dose, and route?: Yes Could a more targeted ABx be ordered?: No (E. COLI IN URINE SENSITIVE TO CEFEPIM E. BLOOD CX NO GROWTH)
[2023-12-11] MEDS: CEFEPIME HCL 2 GM in 0.9 % SODIUM CHLORIDE 100 ML IV ×2 (08:21→20:49)
[2023-12-11] MEDS: ENOXAPARIN 40MG/0.4ML SYRINGE 40 MG SQ (08:21)
[2023-12-11] MEDS: POLYETHYLENE GLYCOL 3350 17 GM PACKET PO (08:22)
[2023-12-11 09:41] LABS: Basophils % 0.2 % (0.1-2.0); Eosinophils # 0.1 K/mm3 (0.0-0.4); Eosinophils % 1.1 % (0.1-12.0); Hematocrit 26.6 % (37.0-47.0); Lymphocytes # 0.5 K/mm3 (0.7-4.5); Lymphocytes % 4.4 % (10-50); Mean Corpuscular HGB Conc 30.2 g/dL (31.8-35.4); Mean Corpuscular Hemoglobin 20.4 pg (27.0-31.2); Mean Corpuscular Volume 67.6 fl (81-99); Mean Platelet Volume 8.4 fl (7.4-10.4); Monocytes # 0.4 K/mm3 (0.1-1.0); Monocytes % 4.2 % (1.7-9.3); Neutrophils # 9.6 K/mm3 (1.8-7.8); Neutrophils % 90.1 % (37.0-80.0); Platelet Count 315 K/mm3 (142-424); Red Blood Count 3.94 M/mm3 (4.20-5.40); Red Cell Distribution Width 20.3 % (11.5-17.5); White Blood Count 10.7 K/mm3 (4.8-10.8)
[2023-12-11 09:45] LABS: Chloride 102 mmol/L (98-107)
[2023-12-11 09:46] LABS: Sodium 130 mmol/L (136-145)
[2023-12-11 09:49] LABS: Blood Urea Nitrogen 41 mg/dl (7-17); Calcium 8.3 mg/dl (8.4-10.2); Carbon Dioxide 18 mmol/L (22.0-30.0); Creatinine Clearance Estimated 43 mL/min (50-200); Estimated Glomerular Filt Rate 51 ml/min (>60); GFR (African American) 62 ML/MIN (>60); Glucose 120 mg/dl (74-100)
[2023-12-11 09:53] LABS: MANUAL DIFFERENTIAL MANUAL DIFFERENTIAL (MANUAL DIFF)
[2023-12-11 10:25] LABS: Anisocytosis 1+; Lymphocytes % 9 % (10-50); Microcytosis 1+; Monocytes % 1 % (2-9); Neutrophils % 89 % (42-76); Platelet Estimate Normal; Total Cells Counted 100
[2023-12-11 10:26] LABS: Hypochromasia 1+; Ovalocytes 1+
--- NOTE | 2023-12-11 10:30 | HMH.OTEV ---
OT Inpatient Evaluation Rehab OT IP Evaluation Start: 12/11/23 09:25 Freq: ONCE Status: Active Protocol: Document 12/11/23 10:20 ANGELES (Rec: 12/11/23 10:29 ANGELES [id number]) Rehab OT IP Assessment Subjective History Ms. Corbin is a 58-year-old female on no home medications who drinks rum daily. Initially presented to the ER yesterday due to onset of abdominal pain that radiated into her right shoulder. Pain began 24 hours prior to initial presentation. Unable to tolerate p.o. intake. Having nausea but no andi emesis. 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 Workup in the ER yesterday concerning for UTI along with pancreatitis. CT imaging showing stranding. Lipase elevated at 350. Discussion about admission versus trial of outpatient pain medication and p.o. intake undertaken yesterday in the ER. Patient elected to discharge home with oral pain medication and antibiotics for UTI. She Ari presented today to the ER due to the severity of her pain. States is a 10 out of 10. Has not been able to tolerate any p.o. fluids. Denies any fever, chills, diarrhea, chest pain or shortness of breath. Is tachycardic on arrival. Mild leukocytosis. Given her failure of attempted discharge yesterday, severity of pain, intolerance of p.o. intake, medicine consulted for admission and further management. On arrival to the floor, patient appears uncomfortable sitting in bedside chair. Heart rate tachycardic in the 120s. Stable on room air. Pleasant but in apparent pain. Denies previous episodes of pancreatitis. During interview it is wearing off alcohol ever again given the severity of pain she is dealing with at this time. Patient lives at home with son . Independent with ADLs, IADLs and continues to drive as needed. Subjective I can get up. Analysis Patient's ability to complete transfers, fx'l mobility and LB drsg. Patient completed all tasks independently with usage of RW . Objective Patient Orientation Person,Name,Age,Birthday,Year Right Upper Extremity Gross ROM WFL Left Upper Extremity Gross ROM WFL Transfer Training Sit/Stand/Step Transfer,Sit/ Stand/Pivot Transfer Assist Level Independent Chair Transfer Ability Independent Chair Transfer Technique Sit to/from Ambulatory Chair Transfer Assistive Devices Rolling Walker Lower Body Dressing Ability Independent Rehab OT IP prob,goals,plan Problems Date of Evaluation: 12/11/23 Rehab Potential Rehab Potential Innapropriate for Skilled Therapy Discharge Plan OT Discharge Plan Patient appears to be at baseline. Recommend RW when returning home. IP OT Services are not needed at this time. Eval Complexity Eval Charge Codes 75920 - Low Complexity PHYSICIAN CERTIFICATION: I certify the specified therapy services for Mary Corbin are required, authorized, and reviewed every 30 days.
[2023-12-11 10:42] LABS: POC Glucose,Bedside 116 (70-110)
--- NOTE | 2023-12-11 10:49 | HMH.PTEV ---
Physical Therapy Evaluation Rehab PT IP Evaluation Start: 12/11/23 09:25 Freq: ONCE Status: Active Protocol: Document 12/11/23 10:46 JAMES (Rec: 12/11/23 10:49 PHOPAULINO Laptop) Subjective/History History History 58 yowf adm to [facility] with pancreatitis. She has PMH of Franck-en-Y gastric bypass in the 90s, drinks 1/5 of rum every 5 days, prior cholecystectomy, and class II obesity. She reports she is generally independent with all mobility and ADLs, lives with her son, and has 2 MAXI the home. Subjective Subjective Pt reports continued abdominal pain, but better than yesterday. Agrees to mobility assessment. New diagnosis of cancer in past 12 No months? Rehab PT IP Eval Objective Appearance Patient Behavior Appropriate Patient Orientation Person,Place,Time Difficulty following instructions none Speech Pattern Clear Ambulation Patient Able to Ambulate Yes Ambulation Observation IP General Gait Pattern Observation Wide Based Gait Ambulation Distance (feet) 25 Ambulation Assistive Device None Ambulation Ability Supervision/Stand by Balance Ability to Arise Able, uses arms to help Sitting Balance Steady, safe Standing Balance Steady, wide stance Dynamic Sitting Balance Ability Good Dynamic Standing Balance Ability Good Transfers Bed Transfer Ability Supervision/Stand by Chair Transfer Ability Supervision/Stand by Sit to Stand Bed Transfer Ability Supervision/Stand by Rehab PT IP prob,goals,plan Problems Date of Evaluation: 12/11/23 Discharge Plan PT Discharge Plan Pt is currently appropriate to return home once medically stable for d/c. No current inpatient therapy needs at this time. May benefit from RW for home use. Eval Complexity Eval Charge Codes 03889 - High Complexity PHYSICIAN CERTIFICATION: I certify the specified therapy services for Mary Corbin are required, authorized, and reviewed every 30 days.
--- NOTE | 2023-12-11 13:31 | DIET.NUTRFU ---
No BM noted since admit, was either NPO or liquid diet until yesterday. No one regular diet, tolerating. Miralax ordered. Will continue to follow
--- NOTE | 2023-12-11 13:47 | EXP.PN ---
Subjective *Date: 12/11/23 *Time: 13:47 Interval history: patient is seen at bedside, complains of nause and abd pain, was able to hold down regular breakfast, but had nasuea after eating, denied CP, SOB, fevers, she was able to hold down dinner last night Exam Data for Last 24 hours Vital signs and Labs for Last 24 Hours: Temp Pulse Resp BP Pulse Ox O2 Del Method 97.7 F 107 H 17 153/75 H 91 L Room Air 12/11/23 12:00 12/11/23 12:00 12/11/23 12:00 12/11/23 12:00 12/11/23 12:00 12/11/23 12:00 Laboratory Results - last 24 hr 12/10/23 16:38: POC Glucose 110 12/10/23 20:10: POC Glucose 91 12/11/23 05:36: Sodium 131 L, Potassium 4.0, Chloride 100, Carbon Dioxide 18 L, Anion Gap 17.0 H, BUN 41 H, Creatinine 1.30 H, Estimated Creat Clear 36, Estimated GFR 42 L, Est GFR ( Amer) 51 L D, Glucose 107 H D, Calcium 8.2 L, Total Bilirubin 1.0, AST 36 D, ALT 16, Alkaline Phosphatase 147 H, Total Protein 5.9 L, Albumin 3.0 L, Globulin 2.9, Albumin/Globulin Ratio 1.0 L 12/11/23 05:42: POC Glucose 105 12/11/23 09:30: WBC 10.7, RBC 3.94 L, Hgb 8.0 L, Hct 26.6 L, MCV 67.6 L, MCH 20.4 L, MCHC 30.2 L, RDW 20.3 H, Plt Count 315, MPV 8.4, Neut % (Auto) 90.1 H, Lymph % (Auto) 4.4 L, Hancock % (Auto) 4.2, Eos % (Auto) 1.1, Baso % (Auto) 0.2, Neut # (Auto) 9.6 H, Lymph # (Auto) 0.5 L, Hancock # (Auto) 0.4, Eos # (Auto) 0.1, Baso # (Auto) 0.0, Total Counted 100, Neutrophils % (Manual) 89 H, Band Neutrophils % 1.0, Lymphocytes % (Manual) 9 L, Monocytes % (Manual) 1 L, Platelet Estimate Normal, Hypochromasia 1+, Anisocytosis 1+, Microcytosis 1+, Ovalocytes 1+, Sodium 130 L, Potassium 4.0, Chloride 102, Carbon Dioxide 18 L, Anion Gap 14.0, BUN 41 H, Creatinine 1.10 H, Estimated Creat Clear 43, Estimated GFR 51 L, Est GFR ( Amer) 62 D, Glucose 120 H, Calcium 8.3 L 12/11/23 10:35: POC Glucose 116 H I & O for Last 24 hours: Intake & Output 12/08/23 12/09/23 12/10/23 12/11/23 23:59 23:59 23:59 23:59 Intake Total 4060 / 4060 2763 / 3128 1819 / 2421 1362 / 1362 Output Total 300 / 600 550 / 550 451 / 451 400 / 400 Balance 3760 / 3460 2213 / 2578 1368 / 1970 962 / 962 Weight 96.672 kg 96.68 kg 96.68 kg 104.326 kg Microbiology Reports for the Last 24 Hours: Microbiology 12/08/23 14:20 Urine,Clean Catch Urine Culture - Final NO GROWTH AFTER 48 HOURS Constitutional Constitutional: no acute distress *Routine HEENT Exam Head: Present normocephalic Eye: Present EOMI and PERRL ENT: Present mucous membranes moist *Routine Neck Exam Neck: Present supple; Absent lymphadenopathy *Routine Respiratory Exam Respiratory: Present CTA bilaterally *Routine Cardiovascular Exam Cardiovascular: Present RRR *Routine Abdominal Exam Abdominal: Present soft and normoactive bowel sounds; Absent tenderness *Routine Extremities Exam Extremities: Absent cyanosis, clubbing or edema *Routine Skin Exam Skin: Present warm; Absent rash *Routine Neurological Exam Neurological: Present alert and oriented X3 Assessment and Plan *Assessment and plan (1) Severe sepsis: Status: Acute Category: Medical Code(s): A41.9 - Sepsis, unspecified organism; R65.20 - Severe sepsis without septic shock (2) Pyelonephritis: Status: Acute Category: Medical Code(s): N12 - Tubulo-interstitial nephritis, not specified as acute or chronic (3) Pancreatitis: Status: Acute Category: Medical Code(s): K85.90 - Acute pancreatitis without necrosis or infection, unspecified (4) Abdominal pain: Status: Acute Category: Medical Code(s): R10.9 - Unspecified abdominal pain (5) Alcohol use: Status: Acute Category: Social Hx Code(s): Z78.9 - Other specified health status (6) UTI (urinary tract infection): Status: Acute Category: Medical Code(s): N39.0 - Urinary tract infection, site not specified (7) Class 2 obesity: Status: Acute Category: Medical Code(s): E66.9 - Obesity, unspecified (8) Hypothyroidism: Status: Acute Category: Medical Code(s): E03.9 - Hypothyroidism, unspecified (9) Hyperglycemia: Status: Acute Category: Medical Code(s): R73.9 - Hyperglycemia, unspecified (10) Microcytic anemia: Status: Acute Category: Medical Code(s): D50.9 - Iron deficiency anemia, unspecified Plan 58-year-old female with obesity, history of gastric bypass surgery, daily alcohol use who presents with worsening abdominal pain for the second day in a row. Found to have pancreatitis. ER physician consulted medicine for admission. Request admission for IV fluids, pain control, further inpatient treatment of patient's pancreatitis and possible UTI. Medicine agreed to admit for further management. Necessitating IV pain control and IV fluids. N.p.o. at this time. Necessitating inpatient admission. Severe sepsis Pyelonephritis BEBETO Pancreatitis Alcohol use disorder -Reviewed CT of abdomen again showing stranding and fluid around liver but stranding also around right kidney. In conjunction with right CVA tenderness, findings more concerning for pyelonephritis at this time than pancreatitis. continue IV fluids advance diet as tolerated, currently on full liquid diet monitor BMP, monitor Na level Cr is worsening - monitor advance to regular diet BEBETO stop IV toradol given BEBETO, will give IV fluid bolus, monitor Cr, -Status post Franck-en-Y in the mid 90s. Gallbladder removed 30 years ago. Drinks 1/5 of rum every 5 days. Likely etiology of pancreatitis is alcoholic pancreatitis. -Lipase was elevated at 360, suspect this was a con founding finding in the setting of reevaluation of her abdomen CT and new clinical findings today as above. -Continue liquid diet. - Zofran for nausea 4 mg every 8 hours as needed; Phenergan 25 mg IV every 6 hours as needed for nausea -No signs of withdrawal. A1c 6.1, consistent with prediabetes. Will treat with sliding scale insulin, fingersticks ACHS TSH elevated at 6.3. initiated 50 mcg daily of levothyroxine Microcytic anemia: -Recommend supplementation with iron via oral or continued IV after discharge -Transfusion threshold hemoglobin less than 7 Class II obesity complicates all aspects of her care Full code Lovenox 40 mg subcu daily advance to regular diet, stop IV toradol given BEBETO, will give IV fluid bolus, monitor Cr, DC 1-2 days pending clinical improvement continue to monitor Cr, likely DC 1-2 days, Cr is improving
--- NOTE | 2023-12-11 15:24 | PC.NURSE ---
Pt has been up to the chair and slept intermittently for the majority of the shift today. Pt bowel sounds were hypoactive this morning and she has not made any indication of needing to have a bowel movement. Miralax was given, mixed into coffee. Pt has tolerated room air and her O2 saturation has maintained 91 and 92. Pt is tachycardic and hypertensive. PTOT ambulated pt in room with a walker this morning as well. Pt continues to have weakness in her legs and c/o mild back pain. However, she has not asked for pain medication at this time. BLEs edematous and skin is tight. NS hung at 1410, running at 75 mL/hr. Antibiotic given today, WBC count decreased to 10.7.
[2023-12-11] MEDS: TRAMADOL 50MG TABLET 25 MG PO (16:07)
[2023-12-11 16:40] LABS: POC Glucose,Bedside 109 (70-110)
[2023-12-11 20:27] LABS: POC Glucose,Bedside 128 (70-110)
[2023-12-11] MEDS: PANTOPRAZOLE 40MG TABLET 40 MG PO (20:49)
[2023-12-12] VITALS: BP 124/59; PULSE 108; PULSE 114; RESP 16; TEMP 36.9; O2SAT 90
[2023-12-12 04:00] VITALS: BP 115/69; PULSE 106; PULSE 107; RESP 16; TEMP 36.8; O2SAT 98; BMI 42.3
[2023-12-12 05:17] LABS: POC Glucose,Bedside 116 (70-110)
--- NOTE | 2023-12-12 05:27 | PC.NURSE ---
A/O X 4. VITAL SIGNS STABLE. AFEBRILE. NO C/O ABDOMINAL PAIN. NO C/O N/V. AMBULATORY TO BR WITH WALKER AND SBA. HAS NOT REQUIRED S/S INSULIN COVERAGE THIS SHIFT. APPEARS TO LOOK BLOATED. 3 + PITTING EDEMA NOTED IN BLEs. SINUS TACHYCARDIA NOTED ON TELE.
[2023-12-12] MEDS: LEVOTHYROXINE 50MCG (0.05MG) TAB 50 MCG PO (06:25)
[2023-12-12 08:00] VITALS: BP 133/87; PULSE 110; PULSE 112; RESP 20; TEMP 37.2; O2SAT 96
[2023-12-12] MEDS: CEFEPIME HCL 2 GM in 0.9 % SODIUM CHLORIDE 100 ML IV (08:12)
[2023-12-12 09:35] LABS: Basophils % 0.2 % (0.1-2.0); Eosinophils # 0.1 K/mm3 (0.0-0.4); Eosinophils % 0.8 % (0.1-12.0); Hematocrit 26.3 % (37.0-47.0); Hemoglobin 7.9 g/dL (12.2-16.2); Lymphocytes # 0.6 K/mm3 (0.7-4.5); Lymphocytes % 5.3 % (10-50); Mean Corpuscular HGB Conc 29.9 g/dL (31.8-35.4); Mean Corpuscular Hemoglobin 20.7 pg (27.0-31.2); Mean Platelet Volume 7.3 fl (7.4-10.4); Monocytes # 0.6 K/mm3 (0.1-1.0); Monocytes % 5.9 % (1.7-9.3); Neutrophils # 9.6 K/mm3 (1.8-7.8); Neutrophils % 87.8 % (37.0-80.0); Platelet Count 271 K/mm3 (142-424); Red Blood Count 3.81 M/mm3 (4.20-5.40); Red Cell Distribution Width 20.4 % (11.5-17.5); White Blood Count 10.9 K/mm3 (4.8-10.8)
[2023-12-12 09:41] LABS: MANUAL DIFFERENTIAL MANUAL DIFFERENTIAL (MANUAL DIFF)
[2023-12-12 09:43] LABS: Anion Gap 13.8 mEq/L (5-15); Blood Urea Nitrogen 27 mg/dl (7-17); Calcium 8.1 mg/dl (8.4-10.2); Carbon Dioxide 19 mmol/L (22.0-30.0); Chloride 102 mmol/L (98-107); Creatinine Clearance Estimated 59 mL/min (50-200); Estimated Glomerular Filt Rate 74 ml/min (>60); GFR (African American) 90 ML/MIN (>60); Glucose 122 mg/dl (74-100); Potassium 3.8 mmoL/L (3.5-5.1); Sodium 131 mmol/L (136-145)
[2023-12-12 09:59] LABS: Anisocytosis 1+; Hypochromasia 1+; Lymphocytes % 7 % (10-50); Microcytosis 1+; Monocytes % 9 % (2-9); Neutrophils % 84 % (42-76); Ovalocytes 1+; Platelet Estimate Normal; Total Cells Counted 100
[2023-12-12 10:39] LABS: POC Glucose,Bedside 133 (70-110)
--- NOTE | 2023-12-12 11:38 | HMH.PHAINT1 ---
Pharmacy Intervention Comments: DISCHARGE MEDICATION COUNSELING PROVIDED. DISCUSSED THE FOLLOWING MEDICATION CHANGES: -STOP CIPROFLOXACIN AND METRONIDAZOLE -START DOXYCYCLINE (ANTIBIOTIC, TWICE DAILY, TAKE WITH FOOD, N/V/D, SUN SENSITIVITY POSSIBLE) -START LEVOFLOXACIN (ANTIBIOTIC, DAILY, TAKE WITH FOOD, N/V/D POSSIBLE) -PANTOPRAZOLE (FOR REFLUX, TAKE DAILY BEFORE BEDTIME, HEADACHE POSSIBLE) -SIMETHICONE (FOR GAS, EVERY 6 HOURS NEEDED) PATIENT VERBALIZED NO QUESTIONS AT THIS TIME.
[2023-12-12 12:00] VITALS: PULSE 110
--- NOTE | 2023-12-16 13:49 | CARE MANAGER ---
Attempted to contact patient x2 related to hospital discharge. Left VM mesage. DOT Marie
--- NOTE | 2024-01-09 09:05 | P.DS_ITS ---
General Admission date:: 12/07/23 Discharge date: 12/12/23 HPI HPI HPI: Ms. Corbin is a 58-year-old female on no home medications who drinks rum daily. Initially presented to the ER yesterday due to onset of abdominal pain that radiated into her right shoulder. Pain began 24 hours prior to initial presentation. Unable to tolerate p.o. intake. Having nausea but no andi emesis. 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 Workup in the ER yesterday concerning for UTI along with pancreatitis. CT imaging showing stranding. Lipase elevated at 350. Discussion about admission versus trial of outpatient pain medication and p.o. intake undertaken yesterday in the ER. Patient elected to discharge home with oral pain medication and antibiotics for UTI. She Ari presented today to the ER due to the severity of her pain. States is a 10 out of 10. Has not been able to tolerate any p.o. fluids. Denies any fever, chills, diarrhea, chest pain or shortness of breath. Is tachycardic on arrival. Mild leukocytosis. Given her failure of attempted discharge yesterday, severity of pain, intolerance of p.o. intake, medicine consulted for admission and further management. On arrival to the floor, patient appears uncomfortable sitting in bedside chair. Heart rate tachycardic in the 120s. Stable on room air. Pleasant but in apparent pain. Denies previous episodes of pancreatitis. During interview it is wearing off alcohol ever again given the severity of pain she is dealing with at this time. Hospital Course Hospital Course Hospital Course: 58-year-old female with obesity, history of gastric bypass surgery, daily alcohol use who presents with worsening abdominal pain for the second day in a row. Found to have pancreatitis. ER physician consulted medicine for admission. Request admission for IV fluids, pain control, further inpatient treatment of patient's pancreatitis and possible UTI. Medicine agreed to admit for further management. Necessitating IV pain control and IV fluids. N.p.o. at this time. Necessitating inpatient admission. Severe sepsis - improved Pyelonephritis - improved BEBETO improved Pancreatitis - improved Alcohol use disorder - conseled patient was treated with IV antiotics for pyelonephritis coverage, patient impproved, tolerating diet and fevers subsided. patient also discharged on oral antiobiotics with levofloxacin, patient agrees with discharge plan and follow up appointments. patient counseled on alcohol cessation. On the date of discharge, the patient reported feeling stable. The patient was found not to be in any acute distress, and no new abnormalities on physical examination. Further, the patient expressed appropriate understanding of, and agreement with, the discharge recommendations, medications, and plan. Time spent 37 mins Exam Data for Last 24 hours Vital signs and Labs for Last 24 Hours: Temp Pulse Resp BP Pulse Ox O2 Del Method 98.9 F 110 H 20 133/87 96 Room Air 12/12/23 08:00 12/12/23 12:00 12/12/23 08:00 12/12/23 08:00 12/12/23 08:00 12/12/23 10:16 Constitutional Constitutional: no acute distress *Routine HEENT Exam Head: Present normocephalic Eye: Present EOMI and PERRL ENT: Present mucous membranes moist *Routine Neck Exam Neck: Present supple; Absent lymphadenopathy *Routine Respiratory Exam Respiratory: Present CTA bilaterally *Routine Cardiovascular Exam Cardiovascular: Present RRR *Routine Abdominal Exam Abdominal: Present soft and normoactive bowel sounds; Absent tenderness *Routine Extremities Exam Extremities: Absent cyanosis, clubbing or edema *Routine Skin Exam Skin: Present warm; Absent rash *Routine Neurological Exam Neurological: Present alert and oriented X3 DS: Diagnosis Discharge Diagnosis (1) Severe sepsis: Status: Acute Code(s): A41.9 - Sepsis, unspecified organism; R65.20 - Severe sepsis without septic shock (2) Pyelonephritis: Status: Acute Code(s): N12 - Tubulo-interstitial nephritis, not specified as acute or chronic (3) Pancreatitis: Status: Acute Code(s): K85.90 - Acute pancreatitis without necrosis or infection, unspecified (4) Abdominal pain: Status: Acute Code(s): R10.9 - Unspecified abdominal pain (5) Alcohol use: Status: Acute Code(s): Z78.9 - Other specified health status (6) UTI (urinary tract infection): Status: Acute Code(s): N39.0 - Urinary tract infection, site not specified (7) Class 2 obesity: Status: Acute Code(s): E66.9 - Obesity, unspecified (8) Hypothyroidism: Status: Acute Code(s): E03.9 - Hypothyroidism, unspecified (9) Hyperglycemia: Status: Acute Code(s): R73.9 - Hyperglycemia, unspecified (10) Microcytic anemia: Status: Acute Code(s): D50.9 - Iron deficiency anemia, unspecified Meds Home Medications and Allergies Home Medications Medication Instructions Recorded Confirmed Type ondansetron HCl 4 mg tablet 4 mg PO Q8HP PRN nausea and 12/07/23 12/07/23 History vomiting oxycodone 5 mg tablet 5 mg PO Q8HP PRN Moderate Pain 12/07/23 12/07/23 History (Scale Score 5-6) doxycycline hyclate 100 mg capsule 100 mg PO BID #10 caps 12/12/23 Rx levofloxacin 750 mg tablet 750 mg PO DAILY 5 days #5 tabs 12/12/23 Rx pantoprazole 40 mg tablet,delayed 40 mg PO HS 14 days #14 tabs 12/12/23 Rx release simethicone 80 mg chewable tablet 80 mg PO Q6HP PRN Abdominal 12/12/23 Rx (Gas Relief 80 (simethicone)) Distention 5 days #20 tabs New Prescriptions to Start Prescriptions: simethicone [Gas Relief 80 (simethicone)] Jose,Irfan doxycycline hyclate Jose,Irfan levofloxacin Jose,Irfan pantoprazole Jose,Irfan Allergies Allergy/AdvReac Type Severity Reaction Status Date / Time codeine Allergy Verified 12/07/23 10:30 Sulfa (Sulfonamide Allergy Verified 12/07/23 10:30 Antibiotics) Discharge Plan Disposition Patient Disposition: Home, Self-Care Condition: Good Discharge Order Discharge Orders: Discharge Order (Routine); Ordered 12/12/23 Ordered By: Vasquez Garcia Follow up Plan Follow up with: Gaby Humhprey MD [Staff Physician] - Enter time for follow up (please call and ask for new patient registration to make appointment) Prescriptions/Medication Reconciliation: New pantoprazole 40 mg Tablet,Delayed Release (Dr/Ec) 40 mg PO HS 14 Days Qty: 14 0RF simethicone [Gas Relief 80 (simethicone)] 80 mg Tablet,Chewable 80 mg PO Q6HP PRN (Reason: Abdominal Distention) 5 Days Qty: 20 0RF levofloxacin 750 mg tablet 750 mg PO DAILY 5 Days Qty: 5 0RF doxycycline hyclate 100 mg capsule 100 mg PO BID Qty: 10 0RF Continued ondansetron HCl 4 mg tablet 4 mg PO Q8HP PRN (Reason: nausea and vomiting) oxycodone 5 mg tablet 5 mg PO Q8HP PRN (Reason: Moderate Pain (Scale Score 5-6)) Discontinued ciprofloxacin HCl 500 mg tablet 500 mg PO BID Qty: 20 0RF metronidazole 500 mg tablet 500 mg PO BID 10 Days Qty: 20 0RF Other Ambulatory Orders: Home Medical Equipment (Routine) Location: None Selected Ordered By: Vasquez Garcia Problem Reconciliation Problems Reviewed?: Yes Patient Discharge Instructions ACTIVITY: Ambulate as tolerated DIET: continue same diet Stand Alone Forms: [facility] Work Release Patient Instructions: DI for Pancreatitis, DI for Abdominal Pain-Adult Providers Primary Care Provider: Provider,Referral Admit Provider: Jah Cintron Attending Provider: Jah Cintron
== END 2023-12-12 12:15 | disposition home or self-care (01) | DRG 871 ==
LOC: ER 08:06 → 2ND 10:16
PROVIDERS: Internal Medicine; Admitting Provider Internal Medicine Adolescent Medicine; Emergency Provider Emergency Medicine; Visit Provider Internal Medicine Adolescent Medicine
DX: A41.9 Sepsis, unspecified organism (principal); K85.20 Alcohol induced acute pancreatitis without necrosis or infection; N10 Acute pyelonephritis; Z68.41 Body mass index [BMI] 40.0-44.9, adult; N17.9 Acute kidney failure, unspecified; R65.20 Severe sepsis without septic shock; Z98.84 Bariatric surgery status; E66.9 Obesity, unspecified; E03.9 Hypothyroidism, unspecified; R73.9 Hyperglycemia, unspecified; D50.9 Iron deficiency anemia, unspecified; R73.03 Prediabetes; D53.9 Nutritional anemia, unspecified; F10.10 Alcohol abuse, uncomplicated
CPT/HCPCS: 36415; 76705; 80048; 80053; 82550; 82728; 82962; 83036; 83540; 83550; 83615; 83690; 83735; 84443; 85007; 85025; 87040; 87086; 97163; 97165; 99285; J0696; J1756; J2405; J7120

== ENCOUNTER 2023-12-25 09:49 | Emergency (ER) | payer SELFPAY ==
[2023-12-25] VITALS (29 sets, daily range): BP systolic 89–155; BP diastolic 42–88; PULSE 111–133; RESP 16–38; TEMP 36.8–37.6; O2SAT 95–100; BMI 49.8; BMI 50.0
--- NOTE | 2023-12-25 10:03 | CT_ITS ---
FINAL REPORT CLINICAL HISTORY: AMS possible stroke ? COMPARISON: None FINDINGS: Axial images of the head were obtained without contrast. Coronal reformatted images were also obtained.This study was performed with techniques to keep radiation doses as low as reasonably achievable (ALARA). Individualized dose reduction techniques using automated exposure control or adjustment of mA and/or kV according to the patient's size were employed. There is no evidence of intracranial hemorrhage or mass. There are mild chronic ischemic changes. The ventricular size is within normal limits. There is no evidence of shift of the midline structures. No abnormal extra axial fluid collection is identified. No skull abnormality is seen on the bone window images. IMPRESSION: No acute intracranial abnormality. Reviewed, Interpreted and Dictated by Liang Lorenzo III, MD Transcribed by Marysol Yu Authenticated and [facility]
--- NOTE | 2023-12-25 10:03 | CT_ITS ---
FINAL REPORT TECHNIQUE: Thin section axial CT with IV contrast supplemented with multiplanar reconstruction under CT angiogram protocol. 3-D reconstructions were performed. This study was performed with techniques to keep radiation doses as low as reasonably achievable (ALARA). Individualized dose reduction techniques using automated exposure control or adjustment of mA and/or kV according to the patient''s size were employed. CLINICAL HISTORY: acute AMS possible stroke COMPARISON: None FINDINGS: No aneurysm is seen. Major intracranial vessels are patent without significant stenosis. IMPRESSION: No evidence of significant stenosis or aneurysm. Reviewed, Interpreted and Dictated by Liang Lorenzo III, MD Transcribed by Marysol Yu Authenticated and [facility]
--- NOTE | 2023-12-25 10:03 | CT_ITS ---
FINAL REPORT CLINICAL HISTORY: acute AMS COMPARISON: 07/13/2023 FINDINGS: Thin section axial CT images of the chest were obtained with contrast. 3D reformatted images were also obtained. This study was performed with techniques to keep radiation doses as low as reasonably achievable (ALARA). Individualized dose reduction techniques using automated exposure control or adjustment of mA and/or kV according to the patient's size were employed. There is no evidence of pulmonary embolism. There is no evidence of thoracic aortic aneurysm or dissection. There is no evidence of mediastinal or hilar mass or adenopathy. A moderate right effusion is present along with bibasilar airspace opacities, atelectasis or pneumonia. An ET tube tip is present near the ledy. Limited images of the upper abdomen are described in the CT abdomen and pelvis from the same date. IMPRESSION: No evidence of pulmonary embolism. Moderate right pleural effusion, and bibasilar opacities, atelectasis versus pneumonia. These results were called to Dr. Tobar in the [facility] emergency room 12/25/2023 at 11:25 AM. Reviewed, Interpreted and Dictated by Liang Lorenzo III, MD Transcribed by Vero Wilkinson Authenticated and [facility]
--- NOTE | 2023-12-25 10:03 | CT_ITS ---
FINAL REPORT CLINICAL HISTORY: Acute AMS, recent hospitalization with pancreatiti COMPARISON: 12/06/2023 FINDINGS: CT OF THE ABDOMEN AND PELVIS WITH CONTRAST Axial CT images of the abdomen and pelvis were obtained after the administration of IV contrast. Coronal and sagittal reformatted images were also obtained and reviewed. This study was performed with techniques to keep radiation doses as low as reasonably achievable (ALARA). Individualized dose reduction techniques using automated exposure control or adjustment of mA and/or kV according to the patient's size were employed. Abdomen: A moderate right pleural effusion is present along with bibasilar pulmonary opacities, atelectasis versus pneumonia. The heart is normal in size. The liver has an unremarkable appearance, without evidence of mass or biliary ductal dilatation. A new splenic infarct is present when compared to the prior exams of December 05. No adrenal mass is present. The pancreas has an unremarkable appearance. Moderate anasarca is present, new since the prior exam. There is new moderate pneumoperitoneum as well as a small amount of ascites. There is extensive retroperitoneal air in the right anterior pararenal space, posterior right pararenal space, and the right perirenal space, worrisome for a large abscess. The cause of the pneumoperitoneum is not definitely identified. The aorta is normal in caliber. There is an area of loculated ascites versus abscess present in the left side of the abdomen, measuring 7 cm in the AP dimension. Postoperative changes are present in the bowel in the left abdomen. A large ventral hernia is present containing bowel loops, also seen on the prior exam. Pelvis: The appendix is not well-visualized. The urinary bladder is unremarkable, with a Albarran catheter in place. The uterus has been surgically resected. There is a fluid collection in the pelvis, measuring up to 9.7 cm, with a smaller fluid collection in the more posterior pelvis, measuring 2.4 cm in size. The overall appearance is worrisome for bowel perforation. 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 There is new moderate pneumoperitoneum in the right abdomen, particularly the right retroperitoneum as described above. There are also loculated fluid collections in the pelvis as described above, also worrisome for bowel perforation. The cause of the pneumoperitoneum is not definitely visualized. These results were called to Dr. Tobar, [facility] ED. Reviewed, Interpreted and Dictated by Liang Lorenzo III, MD Transcribed by Vero Wilkinson Authenticated and [facility]
--- NOTE | 2023-12-25 10:03 | CT_ITS ---
FINAL REPORT TECHNIQUE: Thin section axial CT with IV contrast supplemented with multiplanar reconstruction under CT angiogram protocol. This study was performed with techniques to keep radiation doses as low as reasonably achievable (ALARA). Individualized dose reduction techniques using automated exposure control or adjustment of mA and/or kV according to the patient''s size were employed. NASCET criteria was utilized during interpretation. CLINICAL HISTORY: acute AMS COMPARISON: None FINDINGS: Aortic arch: Arch shows no significant narrowing. Great vessel origins are widely patent. Right carotid: No significant stenosis is seen of the cervical common or internal carotid artery. Left carotid: No significant stenosis is seen of the cervical common or internal carotid artery. Vertebral: Left vertebral artery is dominant. No significant stenosis is present. Endotracheal tube is present. There is a moderate right pleural effusion. Mild atelectasis is noted. IMPRESSION: No evidence of major branch occlusion or significant stenosis. Reviewed, Interpreted and Dictated by Liang Lorenzo III, MD Transcribed by Marysol Yu Authenticated and [facility]
[2023-12-25 10:09] LABS: Microscopic, Urine URINE MICROSCOPIC (MICROSCOPIC)
[2023-12-25 10:12] LABS: Appearance,Urine CLEAR (Clear); Blood, Urine Negative (Negative); Color,Urine YELLOW (Yellow); Glucose,Urine (UA) Negative (Negative); Ketones,Urine 2+ (Negative); Leukocyte Esterase,Urine Negative (Negative); Nitrate,Urine Negative (Negative); Protein,Urine TRACE (Negative); Specific Gravity, Urine 1.015 (1.005-1.030); Urobilinogen,Urine 0.2 EU/dl (0.2)
--- NOTE | 2023-12-25 10:14 | HMH.EDGENADL ---
Discharge Plan Disposition Patient Disposition: Xfer Other Chief Complaint: Shortness of Breath/Dyspnea Prescriptions Prescriptions: No Action ondansetron HCl 4 mg tablet 4 mg PO Q8HP PRN (Reason: nausea and vomiting) oxycodone 5 mg tablet 5 mg PO Q8HP PRN (Reason: Moderate Pain (Scale Score 5-6)) pantoprazole 40 mg Tablet,Delayed Release (Dr/Ec) 40 mg PO HS 14 Days Qty: 14 0RF simethicone [Gas Relief 80 (simethicone)] 80 mg Tablet,Chewable 80 mg PO Q6HP PRN (Reason: Abdominal Distention) 5 Days Qty: 20 0RF levofloxacin 750 mg tablet 750 mg PO DAILY 5 Days Qty: 5 0RF doxycycline hyclate 100 mg capsule 100 mg PO BID Qty: 10 0RF Referrals Follow up/Referrals: Provider,Referral, MD [Primary Care Provider] - See instructions Clinical Impressions Clinical Impression: Acute encephalopathy, Respiratory failure, Septic shock, Pneumoperitoneum, Intra-abdominal fluid, Infarction of spleen Discharge ED Provider: Faisal Tobar General Adult HPI General Chief complaint: Shortness of Breath/Dyspnea Stated complaint: unresponsive Time Seen by Provider: 12/25/23 10:03 History of Present Illness HPI narrative: Patient brought in by EMS for altered mental status. History is severely limited due to patient's clinical status. I was able to speak to her son on the phone he states that she was recently admitted for urinary tract infection and pancreatitis and was doing well up until yesterday. He checked on her at 4 AM states that at that time she was loopy but was still awake talking and that he found her later this morning bent over retching and minimally responsive EMS was called at that time. She was moving all extremities and route no other history able to be obtained. He is not intubated prehospital. Related Data Home Medications Medication Instructions Recorded Confirmed ondansetron HCl 4 mg tablet 4 mg PO Q8HP PRN nausea and 12/07/23 12/07/23 vomiting oxycodone 5 mg tablet 5 mg PO Q8HP PRN Moderate Pain 12/07/23 12/07/23 (Scale Score 5-6) Previous Rx's Medication Instructions Recorded doxycycline hyclate 100 mg capsule 100 mg PO BID #10 caps 12/12/23 levofloxacin 750 mg tablet 750 mg PO DAILY 5 days #5 tabs 12/12/23 pantoprazole 40 mg tablet,delayed 40 mg PO HS 14 days #14 tabs 12/12/23 release simethicone 80 mg chewable tablet 80 mg PO Q6HP PRN Abdominal 12/12/23 (Gas Relief 80 (simethicone)) Distention 5 days #20 tabs Allergies Allergy/AdvReac Type Severity Reaction Status Date / Time codeine Allergy Verified 12/07/23 10:30 Sulfa (Sulfonamide Allergy Verified 12/07/23 10:30 Antibiotics) [facility] Disclaimer: The information contained in this section may have been updated after the patient was seen, as this information can be updated by other users. Medical History (Updated 12/25/23 @ 11:57 by Faisal Tobar MD) Alcohol abuse Cholecystitis Acid reflux Asthma Surgical History H/O: hysterectomy Gastric bypass status for obesity Family History (Updated 12/07/23 @ 10:54 by Caro Vasquez RN) Other Age related osteoporosis Heart murmur Parkinson disease Social History (Updated 12/07/23 @ 10:56 by Caro Vasquez, [place]) Smoking Status: Unknown if ever smoked alcohol intake: current current occupational status: employed Travel in the last 8 weeks: None ROS Obtained: Yes All systems reviewed & no additional complaints except as documented Physical Exam General General appearance: obtunded and in distress Respiratory Respiratory exam: Present normal lung sounds bilaterally Cardiovascular Cardiovascular exam: Present regular rate Neurological Exam Neurological exam: Present alert and oriented X3 Expanded Neurological Exam Coma scale eye opening: To pain Coma scale motor response: Localizes to pain Coma scale verbal response: None Coma scale total: 8 Medical Decision Making Greg Inquiry Pt receiving controlled substance: No Vital Signs: 12/25/23 09:49 12/25/23 09:59 12/25/23 10:08 Temperature 98.8 F 98.2 F Temperature Source Core Pulse Rate 131 H Pulse Rate [Left Radial] 125 H Respiratory Rate 33 H 35 H 38 H Blood Pressure 155/88 H 121/71 Blood Pressure [Right Arm] 121/71 Blood Pressure Mean [Right Arm] 87 02 Sat by Pulse Oximetry 95 99 Oxygen Delivery Method Non-Rebreather Mechanical Ventilation Mechanical Ventilation 12/25/23 10:11 12/25/23 10:36 12/25/23 10:38 Temperature 98.6 F 99.5 F Temperature Source Pulse Rate 133 H 127 H Pulse Rate [Left Radial] Respiratory Rate 16 26 H 23 Blood Pressure 133/84 136/83 Blood Pressure [Right Arm] Blood Pressure Mean [Right Arm] 02 Sat by Pulse Oximetry 98 97 99 Oxygen Delivery Method Mechanical Ventilation Mechanical Ventilation 12/25/23 10:41 12/25/23 10:44 12/25/23 10:50 Temperature 99.5 F 99.5 F 99.5 F Temperature Source Pulse Rate 117 H 114 H 118 H Pulse Rate [Left Radial] Respiratory Rate 22 22 22 Blood Pressure 119/44 L 105/53 L 118/51 L Blood Pressure [Right Arm] Blood Pressure Mean [Right Arm] 02 Sat by Pulse Oximetry 98 98 97 Oxygen Delivery Method Mechanical Ventilation Mechanical Ventilation 12/25/23 10:55 12/25/23 11:01 12/25/23 11:06 Temperature 99.5 F 99.5 F 99.5 F Temperature Source Pulse Rate 119 H 129 H 129 H Pulse Rate [Left Radial] Respiratory Rate 24 23 24 Blood Pressure 119/62 129/59 L 137/58 L Blood Pressure [Right Arm] Blood Pressure Mean [Right Arm] 02 Sat by Pulse Oximetry 97 99 98 Oxygen Delivery Method Mechanical Ventilation Mechanical Ventilation 12/25/23 11:11 12/25/23 11:15 Temperature 99.5 F 99.5 F Temperature Source Pulse Rate 127 H 129 H Pulse Rate [Left Radial] Respiratory Rate 24 24 Blood Pressure 119/63 134/66 Blood Pressure [Right Arm] Blood Pressure Mean [Right Arm] 02 Sat by Pulse Oximetry 99 97 Oxygen Delivery Method Mechanical Ventilation Mechanical Ventilation Lab Data Lab results reviewed: Yes I reviewed the patient's lab results. Lab Results 12/25/23 10:01: WBC 28.9 H*, RBC 3.48 L, Hgb 7.1 L, Hct 23.8 L, MCV 68.4 L, MCH 20.4 L, MCHC 29.8 L, RDW 20.9 H, Plt Count 583 H, MPV 7.9, Neut % (Auto) 92.4 H, Lymph % (Auto) 3.9 L, [place] % (Auto) 2.5, Eos % (Auto) 0.1, Baso % (Auto) 1.0, Neut # (Auto) 26.8 H, Lymph # (Auto) 1.2, [place] # (Auto) 0.7, Eos # (Auto) 0.0, Baso # (Auto) 0.3 H, Sodium 140, Potassium 5.0, Chloride 106, Carbon Dioxide 11 L, Anion Gap 28.0 H, BUN 42 H, Creatinine 1.20 H, Estimated Creat Clear 49, Estimated GFR 46 L, Est GFR ( Amer) 56 L, Glucose 164 H, Calcium 8.6, Total Bilirubin 1.2, AST 38 H, ALT 19, Alkaline Phosphatase 217 H, Troponin I < 0.01, Total Protein 6.5, Albumin 3.0 L, Globulin 3.5 H, Albumin/Globulin Ratio 0.9 L, Lipase 36 12/25/23 10:04: Urine Color Yellow, Urine Appearance Clear, Urine pH 6.0, Ur Specific [place] 1.015, Urine Protein Trace, Urine Glucose (UA) Negative, Urine Ketones 2+, Urine Blood Negative, Urine Nitrate Negative, Urine Bilirubin 1+ A, Urine Urobilinogen 0.2, Ur Leukocyte Esterase Negative, Urine RBC None, Urine WBC None, Ur Squamous Epith Cells Occasional, Urine Bacteria Trace 12/25/23 11:03: Specimen Source Left radial, O2 % 100, ABG pH 7.25 L, ABG pCO2 29.3 L, ABG pO2 153.5 H, ABG HCO3 12.6 L, ABG Total CO2 13.5 L, ABG O2 Saturation 99, ABG Base Excess -14.6 L, Ever Test Patient unable, Vent Rate 20, Tidal Volume 420 12/25/23 10:01 12/25/23 10:01 Orders (Tests/Meds): ED MEDICATIONS Generic Name Dose Route Start Last Admin Trade Name Donteq PRN Reason Stop Dose Admin Fentanyl Citrate 1,000 mcg/ 100 mls @ 1 mls/hr 12/25/23 10:07 12/25/23 11:41 Sodium Chloride IV 01/24/24 10:06 30 mcg/hr .Q24H ANDREW 3 mls/hr Titration Protocol 10 MCG/HR Midazolam HCl 50 mg/ Sodium 50 mls @ 2.812 mls/hr 12/25/23 10:15 Chloride IV 01/24/24 10:14 .[id number] ANDREW Protocol 0.02 MG/KG/HR Propofol 100 mls @ 8.437 mls/hr 12/25/23 10:30 12/25/23 10:38 Diprivan 10mg/Ml 100ml Bottle IV 01/24/24 10:29 10 mcg/kg/min .[id number] ANDREW 8.44 mls/hr Administration Protocol 10 MCG/KG/MIN Vancomycin HCl 2,500 mg/ 250 mls @ 125 mls/hr 12/25/23 11:45 Sodium Chloride IV 12/25/23 13:44 ONCE ONE Cefepime HCl 2 gm/ Sodium 100 mls @ 200 mls/hr 12/25/23 11:51 Chloride IV 12/25/23 12:20 ONCE ONE Metronidazole 500 mg in 100 mls @ 100 mls/hr 12/25/23 11:52 Flagyl 500mg/100ml Ivpb IV 12/25/23 12:51 ONCE ONE Miscellaneous 1 each 12/25/23 11:45 Vancomycin Consult Request NOTAPPLIC 01/24/24 11:44 [facility] Sodium Chloride 3 ml 12/25/23 10:35 Sodium Chloride 3% 15ml Neb IH 01/24/24 10:34 ONCE PRN INDUCE SPUTUM COLLECTION Discontinued Medications Generic Name Dose Route Start Last Admin Trade Name Freq PRN Reason Stop Dose Admin Lactated Ringer's 1,000 mls @ 999 mls/hr 12/25/23 10:15 12/25/23 11:14 Lactated Ringer's 1000 Ml Bag IV 12/25/23 11:15 999 mls/hr .Q1H1M ANDREW Administration Propofol 100 mls @ 4.218 mls/hr 12/25/23 10:15 Diprivan 10mg/Ml 100ml Bottle IV 01/24/24 10:14 .[id number] ANDREW Protocol 5 MCG/KG/MIN Iopamidol 170 ml 12/25/23 10:27 12/25/23 10:28 Iopamidol-370 (76%);100ml Bottle IV 12/25/23 10:28 170 ml ONCE ONE Administration Sodium Chloride 10 ml 12/25/23 10:27 12/25/23 10:28 Sodium Chloride 0.9% 10ml Syr (Rad Only) IV 12/25/23 10:28 10 ml ONCE ONE Administration Sodium Chloride 50 ml 12/25/23 10:27 12/25/23 10:28 0.9 % Sodium Chloride 50 Ml Vial IV 12/25/23 10:28 50 ml ONCE ONE Administration Sodium Chloride 50 ml 12/25/23 10:28 12/25/23 10:32 0.9 % Sodium Chloride 50 Ml Vial IV 12/25/23 10:29 Not Given ONCE ONE ORDERS Category Date Time Status CT abdomen pelvis w con Stat Cat Scan 12/25/23 10:[address] angio chest PE protocol Stat Cat Scan 12/25/23 10:[address] angio head Stat Cat Scan 12/25/23 10:[address] angio neck Stat Cat Scan 12/25/23 10:[address] head/brain wo con Stat Cat Scan 12/25/23 10:03 Completed CBC w/Auto Diff [Complete Blood Count Auto Diff] Stat Lab 12/25/23 10:01 Results CMP [Comprehensive Metabolic Panel] Stat Lab 12/25/23 10:01 Completed Lactate Venous Stat Lab 12/25/23 10:03 Ordered Lactic Acid Stat Lab 12/25/23 10:00 Received Lipase Stat Lab 12/25/23 10:01 Completed Trop I [Troponin I] Stat Lab 12/25/23 10:01 Completed Troponin I Q3H Lab 12/25/23 13:15 Ordered Troponin I Q3H Lab 12/25/23 16:15 Ordered UA [Urinalysis and Microscopic] Stat Lab 12/25/23 10:04 Completed Blood Culture Stat Micro 12/25/23 10:02 Received Sputum Culture & Gram Stain Stat Micro 12/25/23 10:35 Received ABG [Arterial Blood Gas] Stat RT 12/25/23 11:03 Completed Venous Blood Gas Stat RT 12/25/23 10:04 Ordered Medical Decision Narrative: Critically ill 58-year-old female presents today with sudden and acute worsening of her neurologic status after recent hospitalization with pancreatitis and urinary tract infection. She is moving all of her extremities is unlikely that this is a stroke more likely would be urinary tract infection sepsis hypercarbic respiratory failure worsening of her pancreatitis with metabolic abnormalities etc. Will do CT scan of her head neck chest abdomen pelvis for further evaluation in addition to labs. Given her low GCS and she was unable to protect her airway she was intubated for airway protection I did discuss with her son prior to doing this he states that she is full code and agreed with this. Intubation was performed successfully and she is going to CAT scan right now will reassess. Reassessment CT scans performed to person interpreted no intracranial abnormality no obvious stroke nothing abnormal in her chest however abdomen pelvis extensively abnormal with pneumoperitoneum particularly retroperitoneal space evidence of perforation patient is in septic shock with multiorgan dysfunction. She is getting a second liter of fluids right now mildly hypotensive not requiring pressors at the moment Vanco cefepime and Flagyl have been administered. I did discuss the case with Dr. Mcgee our surgeon and he and I both agreed this patient is too complex for this healthcare system even if she does survive an operation. She also has a new splenic infarct we will hold off on any type of anticoagulation at the moment. I spoke with Dr. Restrepo at [facility] who accepted the patient in transfer. She will go to [place] emergency department. Will be flying her. Procedures Intubation Mallampati Score:: Class I Time out performed: Yes sedative: Etomidate Mg Given: 30 paralytic: Succinylcholine Mg Given: 150 Laryngoscope: Francois (4) Assist Device Used: fiber optic device ET Tube Size: 7.5 ET Tube Uncuffed: Yes Tube Secured Depth (cm): 22 Tube Secured Location: teeth Tube Placement Confirmation: visualized tube passing through cords and equal breath sounds bilaterally Patient Tolerated Procedure: well Intubation Complications: none Critical Care Critical Care Time Critical Care Time: Yes Attestation: On 12/25/23, the high probability of a clinically significant, sudden or life threatening deterioration of the following system(s) required my full and direct attention, intervention and personal management. The time I documented below is in addition to time spent performing reported procedures but includes the following listed in this critical care notation. Total Time Total Critical Care Time: 35
[2023-12-25 10:19] LABS: Chloride 106 mmol/L (98-107)
[2023-12-25 10:20] LABS: Sodium 140 mmol/L (136-145)
[2023-12-25 10:21] LABS: Basophils # 0.3 K/mm3 (0-0.2); Lymphocytes # 1.2 K/mm3 (0.7-4.5); Mean Corpuscular Volume 68.4 fl (81-99)
[2023-12-25 10:22] LABS: Alanine Aminotransferase 19 U/L (12-78); Aspartate Amino Transferase 38 U/L (14-36); Blood Urea Nitrogen 42 mg/dl (7-17); Creatinine Clearance Estimated 49 mL/min (50-200); Estimated Glomerular Filt Rate 46 ml/min (>60); GFR (African American) 56 ML/MIN (>60)
[2023-12-25 10:23] LABS: Albumin/Globulin Ratio 0.9 (1.1-1.8); Alkaline Phosphatase 217 U/L (38-126); Bilirubin,Total 1.2 mg/dl (0.2-1.3); Calcium 8.6 mg/dl (8.4-10.2); Carbon Dioxide 11 mmol/L (22.0-30.0); Globulin 3.5 g/dL (1.3-3.2); Glucose 164 mg/dl (74-100); Lipase 36 U/L (23-300); Total Protein,Serum 6.5 g/dl (6.3-8.2)
--- NOTE | 2023-12-25 10:23 | PC.NURSE ---
0952 pt arrived via EMS, en route, 1 mg narcan given, 6L NC @ 95%, per EMS report. 0953 pt placed on stretcher, ER MD, respiratory, KH,AB, MOP, AM, TD at bedside, pt placed on non rebreather 0953 pt arrived with 18 R AC, 20 L AC placed, blood drawn. bedside glucose 176 1005 temp sensing calloway cath placed 1008 etomidate pushed 30mg/ml 1010 succinylcholine pushed 150mg/ml 1011 pt intubated by provider; 7.5in ET tube placed, color change noted, 22 @ teeth, auscultation noted by MD. 1015 to radiology with AB, charge nurse and respiratory 1032 pt back to bedside per son report, pt was found at 0400 this am, confused, lethargy, shortness of air, pain. pt was seen in [facility] recently for pancreatitis.
[2023-12-25 10:25] LABS: Eosinophils % 0.1 % (0.1-12.0); Hematocrit 23.8 % (37.0-47.0); Hemoglobin 7.1 g/dL (12.2-16.2); Lymphocytes % 3.9 % (10-50); Mean Corpuscular HGB Conc 29.8 g/dL (31.8-35.4); Mean Corpuscular Hemoglobin 20.4 pg (27.0-31.2); Mean Platelet Volume 7.9 fl (7.4-10.4); Monocytes # 0.7 K/mm3 (0.1-1.0); Monocytes % 2.5 % (1.7-9.3); Neutrophils # 26.8 K/mm3 (1.8-7.8); Neutrophils % 92.4 % (37.0-80.0); Platelet Count 583 K/mm3 (142-424); Red Blood Count 3.48 M/mm3 (4.20-5.40); Red Cell Distribution Width 20.9 % (11.5-17.5); White Blood Count 28.9 K/mm3 (4.8-10.8)
[2023-12-25 10:28] LABS: Bacteria,Urine Trace /lpf; Bilirubin,Urine 1+ (Negative); Squamous Epithelial Cell,Urine Occasional #/hpf (0-5)
[2023-12-25] MEDS: IOPAMIDOL-370 (76%);100ML BOTTLE 170 ML IV (10:28)
[2023-12-25] MEDS: 0.9 % SODIUM CHLORIDE 50 ML VIAL IV (10:28)
[2023-12-25] MEDS: SODIUM CHLORIDE 0.9% 10ML SYR (RAD ONLY) 10 ML IV (10:28)
[2023-12-25 10:32] LABS: MANUAL DIFFERENTIAL MANUAL DIFFERENTIAL (MANUAL DIFF)
[2023-12-25 10:36] LABS: Troponin I < 0.01 ng/ml (0.00-0.034)
[2023-12-25] MEDS: propofoL 100 ML 8.4399999999999995 MG IV ×2 (10:38→12:52)
[2023-12-25 11:06] LABS: ABG Base Excess -14.6 mmol/L (-2.4-2.3); ABG HCO3 12.6 mmhg (22.0-26.0); ABG Oxygen Saturation 99 % (90-100); ABG PCO2 29.3 mmhg (35.0-45.0); ABG PH 7.25 mmol/L (7.35-7.45); ABG PO2 153.5 mmhg (80-100); ABG TCO2 13.5 mmhg (23-27); Oxygen 100 %
[2023-12-25 11:07] LABS: Allen's Test Patient Unable; Source Left Radial; Tidal Volume 420; Vent Rate 20
[2023-12-25] MEDS: LACTATED RINGERS 1000ML 1,000 ML 999 ML IV (11:14)
[2023-12-25] MEDS: FENTANYL CITRATE/PF 1,000 MCG in 0.9 % SODIUM CHLORIDE 80 ML 1 MCG IV (11:27)
--- NOTE | 2023-12-25 11:31 | PC.NURSE ---
Dr. Tobar speaking with Shaun at this time for critical result
--- NOTE | 2023-12-25 11:31 | INFXCTL.NOTE ---
Calling [facility] transfer center at this time.
--- NOTE | 2023-12-25 11:35 | PC.NURSE ---
spoke with [facility] for weather check and availability
--- NOTE | 2023-12-25 11:49 | PC.NURSE ---
Dr. Restrepo accepted at [facility]
--- NOTE | 2023-12-25 11:52 | PC.NURSE ---
Called [facility] for consult on patient. Dr Rock has called back and talking to Dr Tobar.
[2023-12-25 11:54] LABS: Lymphocytes % 7 % (10-50); Monocytes % 4 % (2-9); Neutrophils % 73 % (42-76); Nucleated Red Blood Cells 4; Total Cells Counted 100
--- NOTE | 2023-12-25 11:54 | PC.NURSE ---
[facility] accepted pt and has an ETA of 22 minutes. house and maintenance notified
[2023-12-25 11:55] LABS: Platelet Estimate Moderate Increase
[2023-12-25 11:58] LABS: Anisocytosis 1+; Hypochromasia 1+; Microcytosis 1+; Ovalocytes 1+; Poikilocytosis 1+; Polychromasia 1+
[2023-12-25] MEDS: METRONIDAZ/SOD CHL 500 MG/100 ML PIGGYBACK 100 MG IV (11:59)
[2023-12-25 12:01] LABS: Lactic Acid 4.2 mmol/L (0.7-2.1)
[2023-12-25 12:05] LABS: VBG Base Excess -13.2 mmol/L (-2.4-2.3); VBG Oxygen Saturation 78.5 % (50-70); VBG PCO2 26.3 mmol/L (35-51); VBG PH 7.31 mmol/L (7.31-7.41); VBG Total CO2 13.8 mmol/L (23-27)
--- NOTE | 2023-12-25 12:06 | PC.NURSE ---
report called to bella at [facility]
[2023-12-25 12:07] LABS: Lactate Venous 3.8 mmol/L (0.4-2.0)
--- NOTE | 2023-12-25 12:15 | PC.NURSE ---
called pts son to update on pts condition.
--- NOTE | 2023-12-25 12:32 | PC.NURSE ---
called pharm for cefepime
[2023-12-25] MEDS: VANCOMYCIN HCL 2,500 MG in 0.9 % SODIUM CHLORIDE 250 ML 125 MG IV (12:33)
[2023-12-25] MEDS: CEFEPIME HCL 2 GM in 0.9 % SODIUM CHLORIDE 100 ML IV (12:40)
[2023-12-25] MEDS: VANCOMYCIN CONSULT REQUEST 1 EACH NOTAPPLIC (12:51)
--- NOTE | 2023-12-25 12:51 | PC.NURSE ---
[facility] requesting to take vial of propofol for helicopter ride to [facility]
== END 2023-12-25 13:26 | disposition other institution (70) ==
PROVIDERS: Internal Medicine Pulmonary Disease; Emergency Provider Student in an Organized Health Care Education/Training Program
DX: A41.89 Other specified sepsis (principal); R65.21 Severe sepsis with septic shock; D73.5 Infarction of spleen; J96.01 Acute respiratory failure with hypoxia; G93.49 Other encephalopathy; K66.8 Other specified disorders of peritoneum; R18.8 Other ascites
CPT/HCPCS: 31500; 51702; 70450; 70496; 70498; 71275; 74177; 80053; 81001; 82803; 83605; 83690; 84484; 85007; 85025; 87040; 87070; 87205; 94002; 96365; 96366; 96367; 99291; J2704; J3010; J3370; J7120; Q9967